=== PATIENT | male | born 1955 | race Caucasian/White ===

== ENCOUNTER 2020-11-11 19:16 | Emergency (ER) | payer MEDICARE, OTHER ==
[~2020-11-11] VITALS: Ht 180.3 cm; Wt 136.1 kg
[2020-11-11 19:23] VITALS: BP 170/95
--- NOTE | 2020-11-11 19:28 | ED GI ---
General Chief Complaint: Foreign Body Stated Complaint: FOOD STUCK IN THROAT Source of Information: Patient Exam Limitations: No Limitations History of Present Illness Date Seen by Provider: Nov 11, 2020 Time Seen by Provider: 19:24 Initial Comments To ER with reports that he has an apple stuck in his throat. He was a quarter slice of apple. He states that food gets stuck in his throat quite frequently. He is never had endoscopy before. He is able to swallow liquids. He can still feel it stuck in his throat. He was scared to force it on down for fear that it would enter his airway. Timing/Duration: 1-2 Days Severity/Quality: Moderate Location: Other Radiation: No Radiation Activities at Onset: None Associated Symptoms: Denies Symptoms Allergies and Home Medications Patient Home Medication List Home Medication List Reviewed: Yes Review of Systems Review of Systems Constitutional: see HPI EENTM: No Symptoms Reported Respiratory: No Symptoms Reported Cardiovascular: No Symptoms Reported Gastrointestinal: See HPI Genitourinary: No Symptoms Reported Musculoskeletal: no symptoms reported Skin: no symptoms reported Psychiatric/Neurological: No Symptoms Reported Endocrine: No Symptoms Reported Hematologic/Lymphatic: No Symptoms Reported Past Hrosonp-Kccjkq-Bgeqiq Hx Patient Social History Recent Foreign Travel: No Contact w/Someone Who Travel: No Physical Exam Vital Signs Capillary Refill : Height/Weight/BMI Height: '" Weight: lbs. oz. kg; BMI Method: General Appearance: WD/WN, no apparent distress, other (Advised that it was safe to try to force this down and it would not go into his airway he took a big gulp of water and states that he could feel it go down into his stomach. He has no residual symptom of foreign body stuck in his throat. Will observe him for a little bit. He states this happens frequently so either way he will need to follow-up with surgery.) HEENT: PERRL/EOMI Neck: non-tender, full range of motion Respiratory: no respiratory distress, no accessory muscle use Gastrointestinal: normal bowel sounds, non tender, soft Neurologic/Psychiatric: alert, normal mood/affect, oriented x 3 Skin: normal color, warm/dry Departure Impression Primary Impression: Esophageal dysmotility Disposition: 01 HOME, SELF-CARE Condition: Stable Departure-Patient Inst. Decision time for Depature: 19:27 Referrals: LINDA LAGUNAS BRETT D DO KIDO, TAKAAKI MD Patient Instructions: Esophageal Dilation Add. Discharge Instructions: 1. Return to ER for any concerns 2. Follow-up with one of the surgeons. Call tomorrow to make an appointment to be seen to have endoscopy scheduled to take a look down your throat. All discharge instructions reviewed with patient and/or family. Voiced unders tanding. OLINDA FAIR PRODUCE ASSISTANT Nov 11, 2020 19:28
== END 2020-11-11 19:49 | disposition home or self-care (01) ==
LOC: ER 19:19
DX: K22.8 Other specified diseases of esophagus (principal)
CPT/HCPCS: 99282

== ENCOUNTER 2021-07-21 07:22 | Outpatient (CLI) | payer MEDICARE ==
[~2021-07-21] VITALS: Ht 180.3 cm; Wt 131.8 kg
[2021-07-23] MEDS ORDERED: HYDR25TA4 PO (10:56)
[2021-07-23] MEDS ORDERED: LISI20TA26 PO (10:56)
[2021-07-23] MEDS ORDERED: INSU100V31 SQ (10:56)
[2021-07-23] MEDS ORDERED: GLIP10TA13 PO (10:56)
[2021-07-23] MEDS ORDERED: VERA80TA4 PO (10:56)
[2021-07-23] MEDS ORDERED: ALPR1TAB7 PO (10:56)
[2021-07-23] MEDS ORDERED: METF-399 PO (10:56)
[2021-07-23] MEDS ORDERED: INSU100I29 SQ (10:56)
[2021-07-23] MEDS ORDERED: [UNRECOGNIZED DRUG - CODE] PO (10:56)
== END 2021-07-23 10:59 ==
LOC: PREOP 07:22
PROVIDERS: ATTEND Specialist
DX: Z01.818 Encounter for other preprocedural examination (principal)

== ENCOUNTER 2021-07-25 07:40 | Day surgery (SDC) | payer MEDICARE ==
[~2021-07-25] VITALS: Ht 180 cm; Wt 131.8 kg
[~2021-07-25 07:40] MED LIST: ALPR1TAB7 PO; GLIP10TA13 PO; HYDR25TA4 PO; INSU100I29 SQ; INSU100V31 SQ; LISI20TA26 PO; METF-399 PO; VERA80TA4 PO; [UNRECOGNIZED DRUG - CODE] PO
[2021-07-25] MEDS ORDERED: LIDOCAINE PF 1% 2 ML VIAL IR PRN (08:00)
[2021-07-25] MEDS ORDERED: MOXIFLOXACIN OPHTH SOLN 5 MG/ML 0.3 ML SYRINGE OP ONE (08:00)
[2021-07-25] MEDS ORDERED: TIMOLOL MALEATE 0.5% 5 ML (TIMOPTIC) BTL OU PRN (08:00)
[2021-07-25] MEDS ORDERED: POVIDONE (BETADINE) OPHTH SOLN 5% 30 ML OP ONE (08:00)
[2021-07-25] MEDS: TETRACAINE 0.5% OPHTH SOLN 4 ML BTL (SINGLE DOSE ONLY) OU PRN ×4 (08:03→08:34)
[2021-07-25] MEDS: TROPICAMIDE 1% OPH SOLN (MYDRIACYL) 15 ML BTL OP SCH ×3 (08:19→08:34)
[2021-07-25] MEDS: PHENYLEPHRINE 10% OPHTH (NEO-SYN) 5 ML BTL OU SCH ×3 (08:19→08:34)
[2021-07-25 08:20] VITALS: BP 139/96
[2021-07-25] MEDS ORDERED: inSUlin ASPART (NovoLOG) 1 UNIT/0.01 ML (CHARGE PER UNIT) IV ONE (08:30)
[2021-07-25] MEDS ORDERED: MIDAZOLAM 2 MG/2 ML (VERSED) VIAL ONE (08:30)
[2021-07-25] MEDS ORDERED: inSUlin ASPART (NovoLOG) 1 UNIT/0.01 ML (CHARGE PER UNIT) ONE (08:31)
--- NOTE | 2021-07-25 08:47 | Ophthalmologist Pre-Op Note ---
Pre-Operative Progress Note H&P Reviewed The H&P was reviewed, patient examined and no changes noted. Date H&P Reviewed: Jul 25, 2021 Time H&P Reviewed: 08:47 Pre-Op Dx Cataract, Left Eye ARACELI PENG MD Jul 25, 2021 08:47
--- NOTE | 2021-07-25 09:07 | Ophthalmology Operative Report ---
Cataract removal/placement IOL PREOPERATIVE DIAGNOSIS: Cataract Left Eye POSTOPERATIVE DIAGNOSIS: Cataract Left Eye PROCEDURE: Cataract removal and placement of posterior chamber implant, left eye SURGEON: Pravin Peng ANESTHESIA: Topical with sedation COMPLICATIONS: None ESTIMATED BLOOD LOSS: Minimal DESCRIPTION OF PROCEDURE: After proper informed consent was obtained, the patient, a 65 male, was taken to the Operating Room and the left eye was anesthetized with tetracaine. The left eye was then prepped and draped in the usual manner. A wire lid speculum was placed. A paracentesis was made at the left hand position. Preservative free lidocaine was injected into the anterior chamber followed by viscoelastic. A clear corneal incision was made in the temporal position. A capsulorrhexis was preformed and the central nuclear and cortical material were removed. The posterior capsule was polished and an Don 21.5 AU00T0 was placed into the capsular bag. The residual viscoelastic was aspirated and balanced saline solution was injected into the anterior chamber. Moxifloxacin was injected into the anterior chamber. The wound was checked and found to be water tight. The patient tolerated the procedure well without complications. PRAVIN PENG MD Jul 25, 2021 09:07
[2021-07-25] MEDS ORDERED: acetaZOLAMIDE ER 500 MG CAP (DIAMOX SEQUELS) PO ONE (09:30)
[2021-07-25 09:45] VITALS: BP 117/72
--- NOTE | 2021-07-25 13:54 | Anesthesia-General Post-Op ---
MAC Patient Condition Mental Status/LOC: Same as Preop Cardiovascular: Satisfactory Nausea/Vomiting: Absent Respiratory: Satisfactory Pain: Controlled Complications: Absent Post Op Complications Complications None Follow Up Care/Instructions Patient Instructions None needed. Anesthesiology Discharge Order Discharge Order Patient is doing well, no complaints, stable vital signs, no apparent adverse anesthesia problems. No complications reported per nursing. DAVIAN MCCLAIN CRNA Jul 25, 2021 13:54
== END 2021-07-25 09:45 | disposition home or self-care (01) ==
LOC: SDC 07:40
PROVIDERS: ATTEND Specialist
DX: E11.36 Type 2 diabetes mellitus with diabetic cataract (principal); H25.12 Age-related nuclear cataract, left eye; I10 Essential (primary) hypertension; R00.0 Tachycardia, unspecified; F32.9 Major depressive disorder, single episode, unspecified; F41.9 Anxiety disorder, unspecified; Z79.4 Long term (current) use of insulin; Z79.899 Other long term (current) drug therapy; Z79.1 Long term (current) use of non-steroidal anti-inflammatories (NSAID)
CPT/HCPCS: 66984; 82947; 93005; V2632

== ENCOUNTER 2021-08-08 10:15 | Day surgery (SDC) | payer MEDICARE ==
[~2021-08-08] VITALS: Ht 180 cm; Wt 131.8 kg
[2021-08-08] MEDS ORDERED: POVIDONE (BETADINE) OPHTH SOLN 5% 30 ML OP ONE (10:30)
[2021-08-08] MEDS ORDERED: MOXIFLOXACIN OPHTH SOLN 5 MG/ML 0.3 ML SYRINGE OP ONE (10:30)
[2021-08-08] MEDS ORDERED: TIMOLOL MALEATE 0.5% 5 ML (TIMOPTIC) BTL OU PRN (10:30)
[2021-08-08] MEDS ORDERED: LIDOCAINE PF 1% 2 ML VIAL IR PRN (10:30)
[2021-08-08 10:31] VITALS: BP 150/89
[2021-08-08] MEDS: TETRACAINE 0.5% OPHTH SOLN 4 ML BTL (SINGLE DOSE ONLY) OU PRN ×4 (10:33→10:52)
[2021-08-08] MEDS: PHENYLEPHRINE 10% OPHTH (NEO-SYN) 5 ML BTL OU SCH ×3 (10:40→10:52)
[2021-08-08] MEDS: TROPICAMIDE 1% OPH SOLN (MYDRIACYL) 15 ML BTL OP SCH ×3 (10:41→10:52)
[2021-08-08] MEDS ORDERED: MIDAZOLAM 2 MG/2 ML (VERSED) VIAL ONE (11:13)
--- NOTE | 2021-08-08 11:19 | Ophthalmologist Pre-Op Note ---
Pre-Operative Progress Note H&P Reviewed The H&P was reviewed, patient examined and no changes noted. Date H&P Reviewed: Aug 08, 2021 Time H&P Reviewed: 11:18 Pre-Op Dx Cataract, Right Eye ARACELI PENG MD Aug 08, 2021 11:19
--- NOTE | 2021-08-08 11:44 | Ophthalmology Operative Report ---
Cataract removal/placement IOL PREOPERATIVE DIAGNOSIS: Cataract Right Eye POSTOPERATIVE DIAGNOSIS: Cataract Right Eye PROCEDURE: Cataract removal and placement of posterior chamber implant, right eye SURGEON: Pravin Peng ANESTHESIA: Topical with sedation COMPLICATIONS: None ESTIMATED BLOOD LOSS: Minimal DESCRIPTION OF PROCEDURE: After proper informed consent was obtained, the patient, a 66 male, was taken to the Operating Room and the right eye was anesthetized with tetracaine. The right eye was then prepped and draped in the usual manner. A wire lid speculum was placed. A paracentesis was made at the left hand position. Preservative free lidocaine was injected into the anterior chamber followed by viscoelastic. A clear corneal incision was made in the temporal position. A capsulorrhexis was preformed and the central nuclear and cortical material were removed. The posterior capsule was polished and Don 21.5 AU00T0 IOL was placed into the capsular bag. The residual viscoelastic was aspirated and balanced saline solution was injected into the anterior chamber. Moxifloxacin was injected into the anterior chamber. The wound was checked and found to be water tight. The patient tolerated the procedure well without complications. PRAVIN PENG MD Aug 08, 2021 11:44
[2021-08-08 11:57] VITALS: BP 153/85
[2021-08-08] MEDS ORDERED: acetaZOLAMIDE ER 500 MG CAP (DIAMOX SEQUELS) PO ONE (12:00)
--- NOTE | 2021-08-08 14:09 | Anesthesia-General Post-Op ---
MAC Patient Condition Mental Status/LOC: Same as Preop Cardiovascular: Satisfactory Nausea/Vomiting: Absent Respiratory: Satisfactory Pain: Controlled Complications: Absent Post Op Complications Complications None Follow Up Care/Instructions Patient Instructions None needed. Anesthesiology Discharge Order Discharge Order Patient was seen after the procedure and he was doing well, no complaints, stable vital signs, no apparent adverse anesthesia problems. NOTE: Pharmacy, please disregard the second waste in the Pyxis (the 0.5 mg waste was done so on the incorrect account). Pt was given 1 mg versed and 1 mg was wasted as shown in the Pyxis on the first waste. IAN WOOD DO Aug 08, 2021 14:09
== END 2021-08-08 11:57 | disposition home or self-care (01) ==
LOC: SDC 10:15
PROVIDERS: ATTEND Specialist
DX: E11.36 Type 2 diabetes mellitus with diabetic cataract (principal); H25.11 Age-related nuclear cataract, right eye; I10 Essential (primary) hypertension; G47.33 Obstructive sleep apnea (adult) (pediatric); E66.9 Obesity, unspecified; F41.9 Anxiety disorder, unspecified; F32.9 Major depressive disorder, single episode, unspecified; Z79.84 Long term (current) use of oral hypoglycemic drugs; Z79.899 Other long term (current) drug therapy; Z68.41 Body mass index [BMI] 40.0-44.9, adult; Z99.89 Dependence on other enabling machines and devices; Z83.3 Family history of diabetes mellitus
CPT/HCPCS: 66984; 82947; V2632

== ENCOUNTER 2021-11-06 15:31 | Emergency (ER) | payer MEDICARE ==
[~2021-11-06] VITALS: Ht 180 cm; Wt 127.0 kg
[2021-11-06 16:20] LABS: BASOPHILS # (AUTO) 0.1 10^3/uL (0.0-0.1); BASOPHILS % (AUTO) 1 % (0-10); EOSINOPHILS # (AUTO) 0.3 10^3/uL (0.0-0.3); EOSINOPHILS % (AUTO) 3 % (0-10); HEMATOCRIT 30 % (40-54); HEMOGLOBIN 9.3 g/dL (13.3-17.7); LYMPHOCYTES # (AUTO) 1.2 X 10^3 (1.0-4.0); LYMPHOCYTES % (AUTO) 12 % (12-44); MEAN CORPUSCULAR HEMOGLOBIN 26 pg (25-34); MEAN CORPUSCULAR HGB CONC 31 g/dL (32-36); MEAN CORPUSCULAR VOLUME 84 fL (80-99); MEAN PLATELET VOLUME 10.7 fL (9.0-12.2); MONOCYTES # (AUTO) 1.1 X 10^3 (0.0-1.0); MONOCYTES % (AUTO) 10 % (0-12); NEUTROPHILS # (AUTO) 7.6 X 10^3 (1.8-7.8); NEUTROPHILS % (AUTO) 74 % (42-75); PLATELET COUNT 398 10^3/uL (130-400); WHITE BLOOD COUNT 10.2 10^3/uL (4.3-11.0)
--- NOTE | 2021-11-06 16:27 | Diagnostic Imaging Report ---
EXAMINATION: Chest 1 view HISTORY: SOA COMPARISON: None available. FINDINGS: There are low lung volumes with mild interstitial opacities in the lung bases. Cardiac silhouette is mildly enlarged with prominence of pulmonary vasculature. Degenerative changes of the thoracic spine. Osseous structures are otherwise intact. IMPRESSION: 1. Low lung volumes with mild interstitial opacities in the lung bases which could be seen with atelectasis, pulmonary edema, or atypical infection. Dictated by: Dictated on workstation # [id number]
[2021-11-06 16:30] LABS: ALBUMIN 3.7 GM/DL (3.2-4.5); POTASSIUM 4.4 MMOL/L (3.6-5.0)
[2021-11-06 16:31] LABS: CALCIUM 8.9 MG/DL (8.5-10.1)
[2021-11-06 16:33] LABS: TOTAL PROTEIN 7.2 GM/DL (6.4-8.2)
[2021-11-06 16:34] LABS: BILIRUBIN,TOTAL 0.2 MG/DL (0.1-1.0)
[2021-11-06 16:36] LABS: CREATININE SERUM 1.44 MG/DL (0.60-1.30)
[2021-11-06 16:39] LABS: MAGNESIUM 1.9 MG/DL (1.6-2.4)
[2021-11-06] MEDS ORDERED: inSUlin (REGULAR) HUMAN 1 UNIT/0.01 ML (CHARGE PER UNIT) IV STA (16:55)
[2021-11-06 16:59] LABS: TSH (THYROID ANALYZER) 1.61 UIU/ML (0.35-4.94)
[2021-11-06] MEDS ORDERED: NS IV 1000 ML 1,000 ML IV SCH ×2 (17:00→18:00)
--- NOTE | 2021-11-06 17:35 | ED General ---
General Chief Complaint: Respiratory Problems Stated Complaint: SOA Nursing Triage Note: PT CO OF SOA, FOR SEVERAL MONTHS WORSE PAST COUPLE DAYS, STATES WORSE D/T BEING BITTEN BY BED BUG FOR SEVERAL YEARS. DENIES C/P, FEVER, COUGH. PT STATES WEARS C-PAP FOR SLEEP APNEA Source of Information: Patient Exam Limitations: No Limitations History of Present Illness Date Seen by Provider: Nov 06, 2021 Time Seen by Provider: 15:42 Initial Comments This 66-year-old gentleman presents to the emergency room with complaints of shortness of breath and fatigue worsening over the past couple of weeks. He has been experiencing some degree of symptoms for the past few months. He does use a CPAP machine for sleep apnea and that does help. He has the most trouble lying down flat and has difficulty sleeping as a result. He is an insulin- dependent type 2 diabetic. He does not check his blood sugars and he has not been using his insulin prescribed. He has been using Levemir 20 units and Humalog 35 units at bedtime only. He has not been using Humalog at mealtimes. His primary care provider is Kadeem Lowry. He denies any cough, fever, or chest pain. He also describes a vague "sick feeling" in the upper abdomen after eating. This resolves if he takes a nap. Patient thinks he may perhaps be experiencing these problems because of severe bedbug infestation in his home. Allergies and Home Medications Allergies Coded Allergies: No Known Drug Allergies (Unverified , 07/23/21) Patient Home Medication List Home Medication List Reviewed: Yes Alprazolam (Alprazolam) 1 Mg Tablet, 1 MG PO BID, (Reported) Entered as Reported by: WALKER MEADOWS on 07/23/21 1056 Amoxapine (Amoxapine) 50 Mg Tab, 50 MG PO UD, (Reported) Entered as Reported by: WALKER MEADOWS on 07/23/21 1056 Glipizide (Glipizide) 10 Mg Tablet, 10 MG PO TID, (Reported) Entered as Reported by: WALKER MEADOWS on 07/23/21 1056 Hydrochlorothiazide (Hydrochlorothiazide) 25 Mg Tablet, 25 MG PO DAILY, (Reported) Entered as Reported by: WALKER MEADOWS on 07/23/21 1056 Insulin Detemir (Levemir Flextouch) 100 Unit/1 Ml Insuln.pen, 20 UNIT SQ BID, (Reported) Entered as Reported by: WALKER MEADOWS on 07/23/21 1056 Insulin Regular, Human (Novolin R) 100 Unit/1 Ml Vial, 35 UNIT SQ TIDAC, (Reported) Entered as Reported by: WALKER MEADOWS on 07/23/21 1056 Lisinopril (Lisinopril) 20 Mg Tablet, 20 MG PO DAILY, (Reported) Entered as Reported by: WALKER MEADOWS on 07/23/21 1056 Metformin HCl (Metformin HCl) 1,000 Mg Tablet, 1,000 MG PO BID, (Reported) Entered as Reported by: WALKER MEADOWS on 07/23/21 1056 Verapamil HCl (Verapamil HCl) 80 Mg Tablet, 80 MG PO UD, (Reported) Entered as Reported by: WALKER MEADOWS on 07/23/21 1056 Review of Systems Review of Systems Constitutional: see HPI EENTM: no symptoms reported Respiratory: see HPI Cardiovascular: see HPI Gastrointestinal: see HPI Genitourinary: no symptoms reported Musculoskeletal: no symptoms reported Skin: no symptoms reported Psychiatric/Neurological: No Symptoms Reported Hematologic/Lymphatic: No Symptoms Reported Immunological/Allergic: no symptoms reported Past Zfmqwhk-Vwhjqc-Nxrpmg Hx Patient Social History Tobacco Use?: No Substance use?: No Alcohol Use?: No Pt feels they are or have been: No Seasonal Allergies Seasonal Allergies: No Past Medical History Surgeries: No Respiratory: Yes Sleep Apnea Cardiac: Yes High Cholesterol, Hypertension Neurological: Yes ("TOXIC PAINT POISONING") Genitourinary: No Gastrointestinal: No Musculoskeletal: Yes (CARPEL TUNNEL) Endocrine: Yes Diabetes, Non-Insulin dep HEENT: No Cancer: No Psychosocial: No Integumentary: No Physical Exam Vital Signs Vital Signs - First Documented 11/06/21 15:40 Temp 36.6 Pulse 110 Resp 20 B/P (MAP) 179/98 (125) Pulse Ox 95 Capillary Refill : Less Than 3 Seconds Height, Weight, BMI Height: '" Weight: lbs. oz. kg; 39.00 BMI Method: General Appearance: No Apparent Distress, WD/WN, Obese HEENT: PERRL/EOMI, Normal ENT Inspection, Pharynx Normal Neck: Normal Inspection, Non Tender Respiratory: Lungs Clear, Normal Breath Sounds, No Accessory Muscle Use, No Respiratory Distress Cardiovascular: Regular Rate, Rhythm, No Edema, No Murmur Gastrointestinal: Normal Bowel Sounds, No Organomegaly, Non Tender; No Distended Extremity: Normal Inspection, No Pedal Edema Neurologic/Psychiatric: Alert, Oriented x3, No Motor/Sensory Deficits, Normal Mood/Affect, mirror inspector II-XII Norm as Tested Skin: Normal Color, Warm/Dry, Rash (bite stoll on upper extremities) Progress/Results/Core Measures Suspected Sepsis SIRS Temperature: Pulse: 110 Respiratory Rate: 20 Laboratory Tests 11/06/21 16:05: White Blood Count 10.2 Blood Pressure 179 /98 Mean: 125 Laboratory Tests 11/06/21 16:05: Creatinine 1.44H, Platelet Count 398, Total Bilirubin 0.2 Results/Orders Lab Results Laboratory Tests Test 11/06/21 16:00 11/06/21 16:05 11/06/21 17:41 11/06/21 17:44 Range/Units White Blood Count 10.2 4.3-11.0 10^3/uL Red Blood Count 3.64 L 4.30-5.52 10^6/uL Hemoglobin 9.3 L 13.3-17.7 g/dL Hematocrit 30 L 40-54 % Mean Corpuscular Volume 84 80-99 fL Mean Corpuscular Hemoglobin 26 25-34 pg Mean Corpuscular Hemoglobin Concent 31 L 32-36 g/dL Red Cell Distribution Width 14.6 H 10.0-14.5 % Platelet Count 398 130-400 10^3/uL Mean Platelet Volume 10.7 9.0-12.2 fL Immature Granulocyte % (Auto) 1 % Neutrophils (%) (Auto) 74 42-75 % Lymphocytes (%) (Auto) 12 12-44 % Monocytes (%) (Auto) 10 0-12 % Eosinophils (%) (Auto) 3 0-10 % Basophils (%) (Auto) 1 0-10 % Neutrophils # (Auto) 7.6 1.8-7.8 X 10^3 Lymphocytes # (Auto) 1.2 1.0-4.0 X 10^3 Monocytes # (Auto) 1.1 H 0.0-1.0 X 10^3 Eosinophils # (Auto) 0.3 0.0-0.3 10^3/uL Basophils # (Auto) 0.1 0.0-0.1 10^3/uL Immature Granulocyte # (Auto) 0.1 0.0-0.1 10^3/uL Sodium Level 135 135-145 MMOL/L Potassium Level 4.4 3.6-5.0 MMOL/L Chloride Level 99 98-107 MMOL/L Carbon Dioxide Level 21 21-32 MMOL/L Anion Gap 15 H 5-14 MMOL/L Blood Urea Nitrogen 15 7-18 MG/DL Creatinine 1.44 H 0.60-1.30 MG/DL Estimat Glomerular Filtration Rate 49 BUN/Creatinine Ratio 10 Glucose Level 581 *H 70-105 MG/DL Calcium Level 8.9 8.5-10.1 MG/DL Corrected Calcium 9.1 8.5-10.1 MG/DL Magnesium Level 1.9 1.6-2.4 MG/DL Total Bilirubin 0.2 0.1-1.0 MG/DL Aspartate Amino Transf (AST/SGOT) 20 5-34 U/L Alanine Aminotransferase (ALT/SGPT) 28 0-55 U/L Alkaline Phosphatase 90 40-136 U/L C-Reactive Protein High Sensitivity 0.86 H 0.00-0.50 MG/DL B-Type Natriuretic Peptide 45.2 <100.0 PG/ML Total Protein 7.2 6.4-8.2 GM/DL Albumin 3.7 3.2-4.5 GM/DL TSH [place] Testing 1.61 0.35-4.94 UIU/ML Glucometer 432 *H 70-110 MG/DL Urine Color YELLOW Urine Clarity CLEAR Urine pH 6.0 5-9 Urine Specific [place] 1.010 L 1.016-1.022 Urine Protein NEGATIVE NEGATIVE Urine Glucose (UA) 3+ H NEGATIVE Urine Ketones NEGATIVE NEGATIVE Urine Nitrite NEGATIVE NEGATIVE Urine Bilirubin NEGATIVE NEGATIVE Urine Urobilinogen 0.2 < = 1.0 MG/DL Urine Leukocyte Esterase NEGATIVE NEGATIVE Urine RBC (Auto) NEGATIVE NEGATIVE Urine RBC NONE /HPF Urine WBC NONE /HPF Urine Squamous Epithelial Cells NONE /HPF Urine Crystals NONE /LPF Urine Bacteria NEGATIVE /HPF Urine Casts NONE /LPF Urine Mucus NEGATIVE /LPF Urine Culture Indicated NO My Orders Orders - JANE CARNES MD [facility] (11/06/21 15:55) Cbc With Automated Diff (11/06/21 15:55) Comprehensive Metabolic Panel (11/06/21 15:55) Hs C Reactive Protein (11/06/21 15:55) Magnesium (11/06/21 15:55) Thyroid Analyzer (11/06/21 15:55) Ua Culture If Indicated (11/06/21 15:55) Chest 1 View, Ap/Pa Only (11/06/21 15:55) Ed Iv/Invasive Line Start (11/06/21 15:55) Covid 19 Inhouse Test (11/06/21 15:55) Ns Iv 1000 Ml (Sodium Chloride 0.9%) (11/06/21 17:00) Insulin (Regular) Human (Novolin R (Per (11/06/21 16:55) Accucheck Stat ONCE (11/06/21 16:56) Ns Iv 1000 Ml (Sodium Chloride 0.9%) (11/06/21 18:00) Insulin (Regular) Human (Novolin R (Per (11/06/21 18:00) Insulin (Regular) Human (Novolin R (Per (11/06/21 18:00) Vital Signs/I&O 11/06/21 15:40 Temp 36.6 Pulse 110 Resp 20 B/P (MAP) 179/98 (125) Pulse Ox 95 Capillary Refill : Less Than 3 Seconds Blood Pressure Mean: 125 Progress Note #1: Time: 17:36 Progress Note Patient serum blood sugar was 581. He is receiving a liter of IV fluid and 5 units of insulin by IV route. We will check his blood sugar again after that. No other cause for his symptoms are identified. There were questionable infiltrates in the lower lung millard on chest x-ray. However, this does not correlate with any other signs of heart failure or pneumonia with his vital signs or work-up. This is most likely atelectasis or artifact due to body habitus. Progress Note #2: Time: 18:00 Progress Note Patient's blood sugar dropped by approximately 150 after about 500 mL of normal saline and 5 units of IV insulin. We will repeat a liter of normal saline and another 5 units of insulin. As long as he is feeling relatively well and trending down on his blood sugars appropriately, he can be discharged. Diagnostic Imaging Diagonstic Imaging: Xray Plain Films/CT/US/NM/MRI: chest Comments NAME: KEY KAM [facility] REC#: [id number] PT STATUS: REG ER : 1955 PHYSICIAN: JANE CARNES MD ADMIT DATE: 11/06/21/ER Signed Date of Exam:11/06/21 CHEST 1 VIEW, AP/PA ONLY EXAMINATION: Chest 1 view HISTORY: SOA COMPARISON: None available. FINDINGS: There are low lung volumes with mild interstitial opacities in the lung bases. Cardiac silhouette is mildly enlarged with prominence of pulmonary vasculature. Degenerative changes of the thoracic spine. Osseous structures are otherwise intact. IMPRESSION: 1. Low lung volumes with mild interstitial opacities in the lung bases which could be seen with atelectasis, pulmonary edema, or atypical infection. Dictated by: Dictated on workstation # [id number] Dict: 11/06/211624 Trans: 11/06/211655 CV [id number] Interpreted by: JAVY REIS DO Electronically signed by: JAVY REIS DO 11/06/211655 Departure Impression Primary Impression: Dyspnea Qualified Codes: R06.00 - Dyspnea, unspecified Additional Impressions: Hyperglycemia Bedbug bite Qualified Codes: W57.XXXA - Bitten or stung by nonvenomous insect and other nonvenomous arthropods, initial encounter Obstructive sleep apnea Disposition: 01 HOME, SELF-CARE Condition: Improved Departure-Patient Inst. Decision time for Depature: 17:39 Referrals: [facility] (PCP/Family) Primary Care Physician Patient Instructions: Using Insulin Add. Discharge Instructions: Drink plenty of water. Use your insulin as prescribed and do not skip any doses. Check your blood sugar fasting in the morning and 2 hours after each meal. Record these blood sugars and take them promptly to your doctor in a follow-up appointment. Please schedule an appointment for next week. Eat a diet low in sugars and carbohydrates. At that appointment also discussed your CPAP machine perhaps your shortness of breath is secondary to the functionality of that machine. Call with questions or concerns. Return to the ER if you have worsening symptoms. All discharge instructions reviewed with patient and/or family. Voiced understanding. JANE CARNES MD Nov 06, 2021 17:35
[2021-11-06 17:50] LABS: BILIRUBIN,URINE NEGATIVE (NEGATIVE); CLARITY,URINE CLEAR; COLOR,URINE YELLOW; GLUCOSE, URINE (UA) 3+ (NEGATIVE); KETONES,URINE NEGATIVE (NEGATIVE); LEUKOCYTE ESTERASE ,URINE NEGATIVE (NEGATIVE); NITRITE,URINE NEGATIVE (NEGATIVE); PROTEIN,URINE NEGATIVE (NEGATIVE)
[2021-11-06 17:57] LABS: BACTERIA,URINE NEGATIVE /HPF
[2021-11-06] MEDS ORDERED: inSUlin (REGULAR) HUMAN 1 UNIT/0.01 ML (CHARGE PER UNIT) IV ONE ×2 (18:00)
[2021-11-06 19:12] VITALS: BP 157/92
== END 2021-11-06 19:12 | disposition home or self-care (01) ==
LOC: EDUNIT# 15:31 → ER 15:34
DX: R06.00 Dyspnea, unspecified (principal); E11.9 Type 2 diabetes mellitus without complications; S60.562A Insect bite (nonvenomous) of left hand, initial encounter; S60.561A Insect bite (nonvenomous) of right hand, initial encounter; G47.33 Obstructive sleep apnea (adult) (pediatric); E66.9 Obesity, unspecified; I10 Essential (primary) hypertension; Z20.822 Contact with and (suspected) exposure to COVID-19; Z68.39 Body mass index [BMI] 39.0-39.9, adult; Z79.84 Long term (current) use of oral hypoglycemic drugs; W57.XXXA Bitten or stung by nonvenomous insect and other nonvenomous arthropods, initial encounter
CPT/HCPCS: 36415; 71045; 80053; 81000; 82947; 83735; 83880; 84443; 85025; 86141; 87636

== ENCOUNTER 2021-12-10 15:20 | Emergency (ER) | payer MEDICARE ==
[~2021-12-10] VITALS: Ht 180.3 cm; Wt 131.0 kg
[2021-12-10 15:51] LABS: BASOPHILS % (AUTO) 1 % (0-10); EOSINOPHILS # (AUTO) 0.2 10^3/uL (0.0-0.3); EOSINOPHILS % (AUTO) 3 % (0-10); HEMATOCRIT 24 % (40-54); LYMPHOCYTES # (AUTO) 1.3 10^3/uL (1.0-4.0); LYMPHOCYTES % (AUTO) 21 % (12-44); MEAN CORPUSCULAR HEMOGLOBIN 23 pg (25-34); MEAN CORPUSCULAR HGB CONC 29 g/dL (32-36); MEAN CORPUSCULAR VOLUME 80 fL (80-99); MEAN PLATELET VOLUME 10.6 fL (9.0-12.2); MONOCYTES # (AUTO) 1.3 10^3/uL (0.0-1.0); MONOCYTES % (AUTO) 21 % (0-12); NEUTROPHILS # (AUTO) 3.3 10^3/uL (1.8-7.8); NEUTROPHILS % (AUTO) 54 % (42-75); PLATELET COUNT 457 10^3/uL (130-400)
--- NOTE | 2021-12-10 15:51 | ED Cough/URI ---
General Stated Complaint: COUGH, SOB Source: patient Exam Limitations: no limitations History of Present Illness Date Seen by Provider: Dec 10, 2021 Time Seen by Provider: 15:47 Initial Comments To ER with a 3-day history of a nonproductive cough. No fever no chills. He has had 3 COVID vaccinations. He states that he has a severe bedbug infestation and believes that may be contributing to his cough though he is not sure how. He states that when he lays down his arm will be nearly immediately covered in bedbugs. I would believe this as they are falling off of him and in the creases of his coat and all over his clothing and one of the worst cases of bedbug infestations on a person that I have seen in quite some time. Timing/Duration: constant Severity/Quality: dry cough Associated Symptoms: cough Allergies and Home Medications Allergies Coded Allergies: No Known Drug Allergies (Unverified , 07/23/21) Patient Home Medication List Home Medication List Reviewed: Yes Alprazolam (Alprazolam) 1 Mg Tablet, 1 MG PO BID, (Reported) Entered as Reported by: WALKER MEADOWS on 07/23/21 105 Amoxapine (Amoxapine) 50 Mg Tab, 50 MG PO UD, (Reported) Entered as Reported by: WALKER MEADOWS on 07/23/21 105 Glipizide (Glipizide) 10 Mg Tablet, 10 MG PO TID, (Reported) Entered as Reported by: WALKER MEADOWS on 07/23/21 105 Hydrochlorothiazide (Hydrochlorothiazide) 25 Mg Tablet, 25 MG PO DAILY, (Reported) Entered as Reported by: WALKER MEADOWS on 07/23/21 105 Insulin Detemir (Levemir Flextouch) 100 Unit/1 Ml Insuln.pen, 20 UNIT SQ BID, (Reported) Entered as Reported by: WALKER MEADOWS on 07/23/21 1056 Insulin Regular, Human (Novolin R) 100 Unit/1 Ml Vial, 35 UNIT SQ TIDAC, (Reported) Entered as Reported by: WALKER MEADOWS on 07/23/21 1056 Lisinopril (Lisinopril) 20 Mg Tablet, 20 MG PO DAILY, (Reported) Entered as Reported by: WALKER MEADOWS on 07/23/21 1056 Metformin HCl (Metformin HCl) 1,000 Mg Tablet, 1,000 MG PO BID, (Reported) Entered as Reported by: WALKER MEADOWS on 07/23/21 1056 Verapamil HCl (Verapamil HCl) 80 Mg Tablet, 80 MG PO UD, (Reported) Entered as Reported by: WALKER MEADOWS on 07/23/21 1056 Review of Systems Review of Systems Constitutional: see HPI EENTM: see HPI Respiratory: see HPI, cough Cardiovascular: no symptoms reported Genitourinary: no symptoms reported Musculoskeletal: no symptoms reported Skin: no symptoms reported Psychiatric/Neurological: No Symptoms Reported Hematologic/Lymphatic: No Symptoms Reported Immunological/Allergic: no symptoms reported Past Utszxcr-Xvdmup-Ovubmp Hx Seasonal Allergies Seasonal Allergies: No Past Medical History Surgeries: No Respiratory: Yes Sleep Apnea Cardiac: Yes High Cholesterol, Hypertension Neurological: Yes ("TOXIC PAINT POISONING") Genitourinary: No Gastrointestinal: No Musculoskeletal: Yes (CARPEL TUNNEL) Endocrine: Yes Diabetes, Non-Insulin dep HEENT: No Cancer: No Psychosocial: No Integumentary: No Physical Exam Vital Signs - First Documented Capillary Refill : Height: '" Weight: lbs. oz. kg; 39.00 BMI Method: General Appearance: WD/WN, other (Unkempt though in no distress. Bedbugs as mentioned are falling off of him onto the bed.) Eyes: Bilateral Eye Normal Inspection, Bilateral Eye PERRL, Bilateral Eye EOMI HEENT: PERRL/EOMI, normal ENT inspection Neck: non-tender, full range of motion Respiratory: normal breath sounds, no respiratory distress, no accessory muscle use Cardiovascular: regular rate, rhythm, no murmur Gastrointestinal: normal bowel sounds, non tender, soft Neurologic/Psychiatric: alert, normal mood/affect, oriented x 3 Skin: normal color, warm/dry Progress/Results/Core Measures Suspected Sepsis SIRS Temperature: Pulse: Respiratory Rate: Laboratory Tests 12/10/21 15:45: White Blood Count 6.0 Blood Pressure / Mean: Laboratory Tests 12/10/21 15:45: Creatinine 1.02, Platelet Count 457H, Total Bilirubin 0.2 Results/Orders Lab Results Laboratory Tests Test 12/10/21 15:30 12/10/21 15:38 12/10/21 15:45 Range/Units Influenza Type A (RT-PCR) Not Detected Not Detecte Influenza Type B (RT-PCR) Not Detected Not Detecte SARS-CoV-2 RNA (RT-PCR) Detected H Not Detecte White Blood Count 6.0 4.3-11.0 10^3/uL Red Blood Count 3.06 L 4.30-5.52 10^6/uL Hemoglobin 7.0 L 13.3-17.7 g/dL Hematocrit 24 L 40-54 % Mean Corpuscular Volume 80 80-99 fL Mean Corpuscular Hemoglobin 23 L 25-34 pg Mean Corpuscular Hemoglobin Concent 29 L 32-36 g/dL Red Cell Distribution Width 15.5 H 10.0-14.5 % Platelet Count 457 H 130-400 10^3/uL Mean Platelet Volume 10.6 9.0-12.2 fL Immature Granulocyte % (Auto) 1 % Neutrophils (%) (Auto) 54 42-75 % Lymphocytes (%) (Auto) 21 12-44 % Monocytes (%) (Auto) 21 H 0-12 % Eosinophils (%) (Auto) 3 0-10 % Basophils (%) (Auto) 1 0-10 % Neutrophils # (Auto) 3.3 1.8-7.8 10^3/uL Lymphocytes # (Auto) 1.3 1.0-4.0 10^3/uL Monocytes # (Auto) 1.3 H 0.0-1.0 10^3/uL Eosinophils # (Auto) 0.2 0.0-0.3 10^3/uL Basophils # (Auto) 0.0 0.0-0.1 10^3/uL Immature Granulocyte # (Auto) 0.0 0.0-0.1 10^3/uL Neutrophils % (Manual) 66 % Lymphocytes % (Manual) 14 % Monocytes % (Manual) 13 % Eosinophils % (Manual) 7 % Basophils % (Manual) 0 % Band Neutrophils 0 % Polychromasia SLIGHT Hypochromasia MODERATE Anisocytosis SLIGHT Target Cells MODERATE Sodium Level 141 135-145 MMOL/L Potassium Level 3.9 3.6-5.0 MMOL/L Chloride Level 106 98-107 MMOL/L Carbon Dioxide Level 21 21-32 MMOL/L Anion Gap 14 5-14 MMOL/L Blood Urea Nitrogen 14 7-18 MG/DL Creatinine 1.02 0.60-1.30 MG/DL Estimat Glomerular Filtration Rate 81 BUN/Creatinine Ratio 14 Glucose Level 154 H 70-105 MG/DL Calcium Level 9.0 8.5-10.1 MG/DL Corrected Calcium 9.2 8.5-10.1 MG/DL Total Bilirubin 0.2 0.1-1.0 MG/DL Aspartate Amino Transf (AST/SGOT) 26 5-34 U/L Alanine Aminotransferase (ALT/SGPT) 27 0-55 U/L Alkaline Phosphatase 68 40-136 U/L B-Type Natriuretic Peptide 32.5 <100.0 PG/ML Total Protein 7.3 6.4-8.2 GM/DL Albumin 3.7 3.2-4.5 GM/DL My Orders Orders - OLINDA FAIR APRN Cbc With Automated Diff (12/10/21 15:40) Comprehensive Metabolic Panel (12/10/21 15:40) Bnp [place] (12/10/21 15:40) Ed Iv/Invasive Line Start (12/10/21 15:40) Chest 1 View, Ap/Pa Only (12/10/21 15:40) Covid 19 Inhouse Test (12/10/21 15:40) Influenza A And B By Pcr (12/10/21 15:40) Manual Differential (12/10/21 15:45) Red Cells Leukocytes Reduced (12/10/21 16:07) Type And Screen (12/10/21 16:07) Anemia Analyzer Hem Tests (12/10/21 16:10) Anemia Analyzer Pathology (12/10/21 16:10) Reticulocyte Count (12/10/21 16:10) Procalcitonin (Pct) (12/10/21 16:36) Vital Signs/I&O 12/10/21 12/10/21 15:33 15:33 Temp 36.1 Pulse 91 Resp 16 B/P (MAP) 139/67 (91) Pulse Ox 98 O2 Delivery Room Air Room Air Capillary Refill : Departure Communication (Admissions) 1705-Discussed with Dr. Adame , he is hemodynamically stable, will give 1 unit of packed red cells in the outpatient setting and have him follow-up with surgery for upper and lower endoscopy. Anemia analyzer is pending. Impression Primary Impression: Symptomatic anemia Additional Impression: Bedbug Hyperinfestation Disposition: 01 HOME, SELF-CARE Condition: Stable Admissions Decision to Admit Reason: Admit from ER (General) Decision to Admit/Date: Dec 10, 2021 Time/Decision to Admit Time: 16:25 Departure-Patient Inst. Decision time for Depature: 17:05 Referrals: [facility] [place] Primary Care Physician LINDA LAGUNAS BRETT D DO KIDO, TAKAAKI MD Add. Discharge Instructions: 1. Call a surgeon of your choosing to make an appointment to be seen for follow-up. Call tomorrow to make that appointment. Also call primary care tomorrow to make an appointment to be seen. Return to ER for any worsening. OLINDA FAIR APRN Dec 10, 2021 15:51
[2021-12-10 16:07] LABS: ALBUMIN 3.7 GM/DL (3.2-4.5)
[2021-12-10 16:08] LABS: POTASSIUM 3.9 MMOL/L (3.6-5.0)
[2021-12-10 16:10] LABS: TOTAL PROTEIN 7.3 GM/DL (6.4-8.2)
[2021-12-10 16:12] LABS: BAND NEUTROPHILS 0 %; BASOPHILS % (MANUAL) 0 %; BILIRUBIN,TOTAL 0.2 MG/DL (0.1-1.0); EOSINOPHILS % (MANUAL) 7 %; LYMPHOCYTES % (MANUAL) 14 %; MONOCYTES % (MANUAL) 13 %; NEUTROPHILS % (MANUAL) 66 %
[2021-12-10 16:13] LABS: ANISOCYTOSIS SLIGHT; CREATININE SERUM 1.02 MG/DL (0.60-1.30); HYPOCHROMASIA MODERATE; POLYCHROMASIA SLIGHT; TARGET CELLS MODERATE
--- NOTE | 2021-12-10 17:12 | Diagnostic Imaging Report ---
INDICATION: Covid. COMPARISON: 11/06/2021. EXAMINATION: Single view of the chest. FINDINGS: Cardiac enlargement without pulmonary edema or acute infiltrate. There is no pneumothorax or effusion. Osseous structures are normal. IMPRESSION: No acute cardiopulmonary findings. Dictated by: Dictated on workstation # [id number]
[2021-12-10 18:39] LABS: ABSOLUTE RETIC # 57 10e9/uL (24-90); RETICULOCYTE % 1.82 % (0.50-2.40)
[2021-12-10 21:11] VITALS: BP 117/75
[2021-12-10 21:33] VITALS: BP 143/69
[2021-12-10 23:38] VITALS: BP 145/81
== END 2021-12-10 17:32 | disposition home or self-care (01) ==
LOC: EDUNIT# 15:20 → ER 15:22
DX: D64.9 Anemia, unspecified (principal); U07.1 COVID-19; B88.9 Infestation, unspecified; I10 Essential (primary) hypertension; E11.9 Type 2 diabetes mellitus without complications; G47.30 Sleep apnea, unspecified; Z79.84 Long term (current) use of oral hypoglycemic drugs; Z79.899 Other long term (current) drug therapy
CPT/HCPCS: 71045; 80053; 82728; 83880; 84145; 85007; 85027; 85045; 86850; 86900; 86901; 86920; 87636; 99284; P9016; 36415; 36430

== ENCOUNTER 2021-12-10 17:02 | Outpatient (CLI) | payer MEDICARE ==
[~2021-12-10] VITALS: Ht 180.3 cm; Wt 132.0 kg
[2021-12-10 18:52] VITALS: BP 136/70
[2021-12-10] MEDS ORDERED: NS IV 500 ML 500 ML IV SCH (19:45)
[2021-12-10] MEDS ORDERED: NS IV 500 ML 500 ML ONE (20:44)
== END 2021-12-11 00:30 | disposition home or self-care (01) ==
LOC: LAB 17:02
PROVIDERS: ATTEND Emergency Medicine
DX: D64.9 Anemia, unspecified (principal); U07.1 COVID-19
CPT/HCPCS: 36430

== ENCOUNTER 2021-12-23 09:14 | Emergency (ER) | payer MEDICARE ==
[~2021-12-23] VITALS: Ht 180 cm; Wt 127.0 kg
--- NOTE | 2021-12-23 10:41 | ED General ---
General Chief Complaint: Dizziness/Syncope Stated Complaint: SOB,DIZZINESS Nursing Triage Note: ARRIVED VIA AMB TO ROOM 05. STATES HE HAS BEEN DIZZY WITH SOA FOR A LONG TIME. HAS A HX OF ANEMIA. DENIES COUGH OR FEVER. Source of Information: Patient Exam Limitations: No Limitations (OLINDA FAIR APRN) History of Present Illness Date Seen by Provider: Dec 23, 2021 Time Seen by Provider: 10:40 Initial Comments To ER with reports of shortness of breath and dizziness for a long time. History of anemia. Hemoglobin last week was 7 for which she received a unit of packed red cells. He is feeling a bit worse today. Denies any melena or hematochezia or hematemesis. Timing/Duration: 1-2 Days Severity: Moderate Associated Systoms: Weakness (OLINDA FAIR APRN) Allergies and Home Medications Allergies Coded Allergies: No Known Drug Allergies (Unverified , 07/23/21) Patient Home Medication List Home Medication List Reviewed: Yes (OLINDA FAIR APRN) Alprazolam (Alprazolam) 1 Mg Tablet, 1 MG PO BID, (Reported) Entered as Reported by: WALKER MEADOWS on 07/23/21 1056 Amoxapine (Amoxapine) 50 Mg Tab, 50 MG PO UD, (Reported) Entered as Reported by: WALKER MEADOWS on 07/23/21 1056 Glipizide (Glipizide) 10 Mg Tablet, 10 MG PO TID, (Reported) Entered as Reported by: WALKER MEADOWS on 07/23/21 1056 Hydrochlorothiazide (Hydrochlorothiazide) 25 Mg Tablet, 25 MG PO DAILY, (Reported) Entered as Reported by: WALKER MEADOWS on 07/23/21 1056 Insulin Detemir (Levemir Flextouch) 100 Unit/1 Ml Insuln.pen, 20 UNIT SQ BID, (Reported) Entered as Reported by: WALKER MEADOWS on 07/23/21 1056 Insulin Regular, Human (Novolin R) 100 Unit/1 Ml Vial, 35 UNIT SQ TIDAC, (Reported) Entered as Reported by: WALKER MEADOWS on 07/23/21 1056 Lisinopril (Lisinopril) 20 Mg Tablet, 20 MG PO DAILY, (Reported) Entered as Reported by: WALKER MEADOWS on 07/23/21 1056 Metformin HCl (Metformin HCl) 1,000 Mg Tablet, 1,000 MG PO BID, (Reported) Entered as Reported by: WALKER MEADOWS on 07/23/21 1056 Verapamil HCl (Verapamil HCl) 80 Mg Tablet, 80 MG PO UD, (Reported) Entered as Reported by: WALKER MEADOWS on 07/23/21 1056 Review of Systems Review of Systems Constitutional: see HPI EENTM: see HPI Respiratory: no symptoms reported Cardiovascular: no symptoms reported Genitourinary: no symptoms reported Musculoskeletal: no symptoms reported Skin: no symptoms reported Psychiatric/Neurological: No Symptoms Reported Hematologic/Lymphatic: No Symptoms Reported Immunological/Allergic: no symptoms reported (OLINDA FAIR APRN) Past Kosiibw-Xojwgi-Dnocjc Hx Patient Social History Tobacco Use?: No Substance use?: No Alcohol Use?: No (OLINDA FAIR APRN) Immunizations Up To Date First/Initial COVID19 Vaccinat: MODERNA Second COVID19 Vaccination Ray: MODERNA Third COVID19 Vaccination Date: 10/12 COVID19 [employer] Lawyer: MODERNA (OLINDA FAIR APRN) Seasonal Allergies Seasonal Allergies: No (OLINDA FAIR APRN) Past Medical History Surgeries: No Respiratory: Yes Sleep Apnea Cardiac: Yes High Cholesterol, Hypertension Neurological: Yes ("TOXIC PAINT POISONING") Genitourinary: No Gastrointestinal: No Musculoskeletal: Yes (CARPEL TUNNEL) Endocrine: Yes Diabetes, Non-Insulin dep HEENT: No Cancer: No Psychosocial: No Integumentary: No (OLINDA FAIR APRN) Physical Exam Vital Signs Vital Signs - First Documented 12/23/21 09:15 Temp 36.3 Pulse 105 Resp 16 B/P (MAP) 165/81 (109) Pulse Ox 92 O2 Delivery Room Air (JANE CARNES MD) Vital Signs Capillary Refill : Less Than 3 Seconds (OLINDA FAIR APRN) Height, Weight, BMI Height: '" Weight: lbs. oz. kg; 39.00 BMI Method: General Appearance: No Apparent Distress, WD/WN, Obese, Other (GEN 86% on room air while sleeping but rises to 97% when awakened.) Neck: Full Range of Motion, Normal Inspection Respiratory: No Accessory Muscle Use, No Respiratory Distress Gastrointestinal: Non Tender, Soft Extremity: Normal Capillary Refill, Normal Inspection Neurologic/Psychiatric: Alert, Oriented x3 Skin: Normal Color, Warm/Dry (OLINDA FAIR APRN) Progress/Results/Core Measures Suspected Sepsis SIRS Temperature: Pulse: 105 Respiratory Rate: 16 Laboratory Tests 12/23/21 09:36: White Blood Count 11.0 Blood Pressure 165 /81 Mean: 109 Laboratory Tests 12/23/21 09:36: Creatinine 1.19, Platelet Count 516H, Total Bilirubin 0.2 (OLINDA FAIR APRN) Results/Orders Lab Results Laboratory Tests Test 12/23/21 09:36 Range/Units White Blood Count 11.0 4.3-11.0 10^3/uL Red Blood Count 3.16 L 4.30-5.52 10^6/uL Hemoglobin 7.3 L 13.3-17.7 g/dL Hematocrit 25 L 40-54 % Mean Corpuscular Volume 78 L 80-99 fL Mean Corpuscular Hemoglobin 23 L 25-34 pg Mean Corpuscular Hemoglobin Concent 30 L 32-36 g/dL Red Cell Distribution Width 16.6 H 10.0-14.5 % Platelet Count 516 H 130-400 10^3/uL Mean Platelet Volume 11.9 9.0-12.2 fL Immature Granulocyte % (Auto) 1 % Neutrophils (%) (Auto) 72 42-75 % Lymphocytes (%) (Auto) 14 12-44 % Monocytes (%) (Auto) 11 0-12 % Eosinophils (%) (Auto) 2 0-10 % Basophils (%) (Auto) 1 0-10 % Neutrophils # (Auto) 7.9 H 1.8-7.8 10^3/uL Lymphocytes # (Auto) 1.5 1.0-4.0 10^3/uL Monocytes # (Auto) 1.2 H 0.0-1.0 10^3/uL Eosinophils # (Auto) 0.3 0.0-0.3 10^3/uL Basophils # (Auto) 0.1 0.0-0.1 10^3/uL Immature Granulocyte # (Auto) 0.1 0.0-0.1 10^3/uL Sodium Level 139 135-145 MMOL/L Potassium Level 4.0 3.6-5.0 MMOL/L Chloride Level 104 98-107 MMOL/L Carbon Dioxide Level 22 21-32 MMOL/L Anion Gap 13 5-14 MMOL/L Blood Urea Nitrogen 16 7-18 MG/DL Creatinine 1.19 0.60-1.30 MG/DL Estimat Glomerular Filtration Rate 67 BUN/Creatinine Ratio 13 Glucose Level 436 *H 70-105 MG/DL Calcium Level 9.4 8.5-10.1 MG/DL Corrected Calcium 9.5 8.5-10.1 MG/DL Total Bilirubin 0.2 0.1-1.0 MG/DL Aspartate Amino Transf (AST/SGOT) 38 H 5-34 U/L Alanine Aminotransferase (ALT/SGPT) 46 0-55 U/L Alkaline Phosphatase 91 40-136 U/L B-Type Natriuretic Peptide 95.4 <100.0 PG/ML Total Protein 7.7 6.4-8.2 GM/DL Albumin 3.9 3.2-4.5 GM/DL (JANE CARNES MD) My Orders Orders - JANE CARNES MD Ekg Tracing (12/23/21 09:38) Monitor-Rhythm Ecg Trace Only (12/23/21 09:38) (JANE CARNES MD) Vital Signs/I&O 12/23/21 12/23/21 09:15 12:31 Temp 36.3 Pulse 105 94 Resp 16 16 B/P (MAP) 165/81 (109) 168/90 Pulse Ox 92 98 O2 Delivery Room Air Room Air (JANE CARNES MD) Vital Signs/I&O Capillary Refill : Less Than 3 Seconds (OLINDA FAIR APRN) Blood Pressure Mean: 109 Departure Communication (Admissions) 1209-discussed with Dr. Page, will discharge home she will arrange close outpatient follow-up this week. Currently we cannot transfuse with a hemoglobin of 7.3 given the blood shortage. He has stable up walking around the room. He is still convinced his anemia is from bedbug infestation. He denies any dark stools bloody stools abdominal pain or hematemesis. (OLINDA FAIR APRN) Impression Primary Impression: Symptomatic anemia Disposition: 01 HOME, SELF-CARE Condition: Stable Departure-Patient Inst. Decision time for Depature: 11:36 (OLINDA FAIR APRN) Referrals: [facility] (PCP) Primary Care Physician SOBIA PALMA (Family) Primary Care Physician Patient Instructions: Anemia Caused by Low Iron Add. Discharge Instructions: 1. Follow-up with Dr. Page or someone at [facility]. Call them today to make an appointment to be seen this week. All discharge instructions reviewed with patient and/or family. Voiced understanding. ATTENDING PHYSICIAN NOTE: I was physically present as attending physician in the emergency department during the care of this patient, but I was not directly involved in the decision making or delivery of care for this patient. (JANE CARNES MD) OLINDA FAIR APRN Dec 23, 2021 10:41 JANE CARNES MD Dec 24, 2021 22:27
[2021-12-23 10:46] LABS: BASOPHILS # (AUTO) 0.1 10^3/uL (0.0-0.1); BASOPHILS % (AUTO) 1 % (0-10); EOSINOPHILS # (AUTO) 0.3 10^3/uL (0.0-0.3); EOSINOPHILS % (AUTO) 2 % (0-10); HEMATOCRIT 25 % (40-54); HEMOGLOBIN 7.3 g/dL (13.3-17.7); LYMPHOCYTES # (AUTO) 1.5 10^3/uL (1.0-4.0); LYMPHOCYTES % (AUTO) 14 % (12-44); MEAN CORPUSCULAR HEMOGLOBIN 23 pg (25-34); MEAN CORPUSCULAR HGB CONC 30 g/dL (32-36); MEAN CORPUSCULAR VOLUME 78 fL (80-99); MEAN PLATELET VOLUME 11.9 fL (9.0-12.2); MONOCYTES # (AUTO) 1.2 10^3/uL (0.0-1.0); MONOCYTES % (AUTO) 11 % (0-12); NEUTROPHILS # (AUTO) 7.9 10^3/uL (1.8-7.8); NEUTROPHILS % (AUTO) 72 % (42-75); PLATELET COUNT 516 10^3/uL (130-400)
[2021-12-23 10:51] LABS: ALBUMIN 3.9 GM/DL (3.2-4.5)
[2021-12-23 10:52] LABS: CALCIUM 9.4 MG/DL (8.5-10.1)
[2021-12-23 10:54] LABS: TOTAL PROTEIN 7.7 GM/DL (6.4-8.2)
[2021-12-23 10:55] LABS: BILIRUBIN,TOTAL 0.2 MG/DL (0.1-1.0)
[2021-12-23 10:57] LABS: CREATININE SERUM 1.19 MG/DL (0.60-1.30)
[2021-12-23] MEDS ORDERED: inSUlin (REGULAR) HUMAN 1 UNIT/0.01 ML (CHARGE PER UNIT) SC ONE (11:45)
[2021-12-23 12:31] VITALS: BP 168/90
== END 2021-12-23 12:31 | disposition home or self-care (01) ==
LOC: EDUNIT# 09:14 → ER 09:15
DX: D64.9 Anemia, unspecified (principal); G47.30 Sleep apnea, unspecified; I10 Essential (primary) hypertension; E11.9 Type 2 diabetes mellitus without complications; E66.9 Obesity, unspecified; Z68.39 Body mass index [BMI] 39.0-39.9, adult; Z79.84 Long term (current) use of oral hypoglycemic drugs; Z79.899 Other long term (current) drug therapy
CPT/HCPCS: 36415; 80053; 83880; 85025; 93005

== ENCOUNTER 2022-02-01 13:16 | Emergency (ER) | payer MEDICARE ==
[~2022-02-01] VITALS: Ht 180.3 cm; Wt 131.5 kg
[2022-02-01 13:53] LABS: BASOPHILS # (AUTO) 0.1 10^3/uL (0.0-0.1); BASOPHILS % (AUTO) 0 % (0-10); EOSINOPHILS # (AUTO) 0.3 10^3/uL (0.0-0.3); EOSINOPHILS % (AUTO) 3 % (0-10); HEMATOCRIT 29 % (40-54); HEMOGLOBIN 8.1 g/dL (13.3-17.7); LYMPHOCYTES # (AUTO) 1.6 10^3/uL (1.0-4.0); LYMPHOCYTES % (AUTO) 14 % (12-44); MEAN CORPUSCULAR HEMOGLOBIN 20 pg (25-34); MEAN CORPUSCULAR HGB CONC 28 g/dL (32-36); MEAN CORPUSCULAR VOLUME 72 fL (80-99); MEAN PLATELET VOLUME 10.3 fL (9.0-12.2); MONOCYTES # (AUTO) 1.3 10^3/uL (0.0-1.0); MONOCYTES % (AUTO) 11 % (0-12); NEUTROPHILS # (AUTO) 8.3 10^3/uL (1.8-7.8); NEUTROPHILS % (AUTO) 72 % (42-75); PLATELET COUNT 465 10^3/uL (130-400); WHITE BLOOD COUNT 11.6 10^3/uL (4.3-11.0)
--- NOTE | 2022-02-01 13:54 | ED General ---
General Stated Complaint: WEAKNESS - SOA Source of Information: Patient Exam Limitations: No Limitations History of Present Illness Date Seen by Provider: Feb 01, 2022 Time Seen by Provider: 13:50 Initial Comments To ER with reports of general weakness and shortness of breath. The shortness of breath is all the time and not just with activity. He denies any nausea vomiting fevers chills chest pain or cough. He has been here couple of times for this. Most recently found to be anemic and was given some outpatient blood transfusion. He followed up with primary care but states that to his knowledge she has not yet scheduled for colonoscopy. Cause of his anemia is to be determined though he attributed it at least initially to his bedbug infestation. He states that since I saw him last time he has moved out of the house that had the bedbug infestation and into a new house. Patiently, he believes this may be related to his CPAP. He has a CPAP at home with 15 cm of H2O pressure. His son has not the same settings but he feels like his son's CPAP machine produces much more airflow. He is convinced his CPAP is not functioning effectively and this is the cause for his symptoms. Timing/Duration: Constant Severity: Moderate Associated Systoms: Malaise, Weakness Allergies and Home Medications Allergies Coded Allergies: No Known Drug Allergies (Unverified , 07/23/21) Patient Home Medication List Home Medication List Reviewed: Yes Alprazolam (Alprazolam) 1 Mg Tablet, 1 MG PO BID, (Reported) Entered as Reported by: WALKER MEADOWS on 07/23/21 1056 Amoxapine (Amoxapine) 50 Mg Tab, 50 MG PO UD, (Reported) Entered as Reported by: WALKER MEADOWS on 07/23/21 1056 Glipizide (Glipizide) 10 Mg Tablet, 10 MG PO TID, (Reported) Entered as Reported by: WALKER MEADOWS on 07/23/21 1056 Hydrochlorothiazide (Hydrochlorothiazide) 25 Mg Tablet, 25 MG PO DAILY, (Reported) Entered as Reported by: WALKER MEADOWS on 07/23/21 1056 Insulin Detemir (Levemir Flextouch) 100 Unit/1 Ml Insuln.pen, 20 UNIT SQ BID, (Reported) Entered as Reported by: WALKER MEADOWS on 07/23/21 1056 Insulin Regular, Human (Novolin R) 100 Unit/1 Ml Vial, 35 UNIT SQ TIDAC, (Reported) Entered as Reported by: WALKER MEADOWS on 07/23/21 1056 Lisinopril (Lisinopril) 20 Mg Tablet, 20 MG PO DAILY, (Reported) Entered as Reported by: WALKER MEADOWS on 07/23/21 1056 Metformin HCl (Metformin HCl) 1,000 Mg Tablet, 1,000 MG PO BID, (Reported) Entered as Reported by: WALKER MEADOWS on 07/23/21 1056 Verapamil HCl (Verapamil HCl) 80 Mg Tablet, 80 MG PO UD, (Reported) Entered as Reported by: WALKER MEADOWS on 07/23/21 1056 Review of Systems Review of Systems Constitutional: see HPI EENTM: see HPI Respiratory: no symptoms reported Cardiovascular: no symptoms reported Genitourinary: no symptoms reported Musculoskeletal: see HPI Skin: no symptoms reported Psychiatric/Neurological: No Symptoms Reported Hematologic/Lymphatic: No Symptoms Reported Immunological/Allergic: no symptoms reported Past Aufyczv-Lqqknk-Cevnhb Hx Immunizations Up To Date First/Initial COVID19 Vaccinat: MODERNA Second COVID19 Vaccination Ray: MODERNA Third COVID19 Vaccination Date: 10/12 Seasonal Allergies Seasonal Allergies: No Past Medical History Surgeries: No Respiratory: Yes Sleep Apnea Cardiac: Yes High Cholesterol, Hypertension Neurological: Yes ("TOXIC PAINT POISONING") Genitourinary: No Gastrointestinal: No Musculoskeletal: Yes (CARPEL TUNNEL) Endocrine: Yes Diabetes, Non-Insulin dep HEENT: No Cancer: No Psychosocial: No Integumentary: No Physical Exam Vital Signs Vital Signs - First Documented 02/01/22 13:42 Pulse 104 Resp 20 B/P (MAP) 165/83 (110) Pulse Ox 96 O2 Delivery Room Air Capillary Refill : Height, Weight, BMI Height: '" Weight: lbs. oz. kg; 39.00 BMI Method: General Appearance: No Apparent Distress, WD/WN, Chronically ill, Other (No tachycardia or hypoxia. Lungs are clear heart rate is normal, rhythm is normal.) Eyes: Bilateral Eye Normal Inspection, Bilateral Eye PERRL, Bilateral Eye EOMI Neck: Full Range of Motion, Normal Inspection Respiratory: Normal Breath Sounds, No Accessory Muscle Use, No Respiratory Distress Cardiovascular: Regular Rate, Rhythm, Normal Peripheral Pulses Gastrointestinal: Normal Bowel Sounds, Non Tender, Soft Extremity: Normal Capillary Refill, Other (Trace pitting edema bilateral lower extremities) Neurologic/Psychiatric: Alert, Oriented x3 Skin: Normal Color, Warm/Dry Progress/Results/Core Measures Suspected Sepsis SIRS Temperature: Pulse: Respiratory Rate: Laboratory Tests 02/01/22 13:47: White Blood Count 11.6H Blood Pressure / Mean: Laboratory Tests 02/01/22 13:47: Creatinine 1.09, Platelet Count 465H, Total Bilirubin 0.2 Results/Orders Lab Results Laboratory Tests Test 02/01/22 13:47 02/01/22 14:36 Range/Units White Blood Count 11.6 H 4.3-11.0 10^3/uL Red Blood Count 3.98 L 4.30-5.52 10^6/uL Hemoglobin 8.1 L 13.3-17.7 g/dL Hematocrit 29 L 40-54 % Mean Corpuscular Volume 72 L 80-99 fL Mean Corpuscular Hemoglobin 20 L 25-34 pg Mean Corpuscular Hemoglobin Concent 28 L 32-36 g/dL Red Cell Distribution Width 18.3 H 10.0-14.5 % Platelet Count 465 H 130-400 10^3/uL Mean Platelet Volume 10.3 9.0-12.2 fL Immature Granulocyte % (Auto) 0 % Neutrophils (%) (Auto) 72 42-75 % Lymphocytes (%) (Auto) 14 12-44 % Monocytes (%) (Auto) 11 0-12 % Eosinophils (%) (Auto) 3 0-10 % Basophils (%) (Auto) 0 0-10 % Neutrophils # (Auto) 8.3 H 1.8-7.8 10^3/uL Lymphocytes # (Auto) 1.6 1.0-4.0 10^3/uL Monocytes # (Auto) 1.3 H 0.0-1.0 10^3/uL Eosinophils # (Auto) 0.3 0.0-0.3 10^3/uL Basophils # (Auto) 0.1 0.0-0.1 10^3/uL Immature Granulocyte # (Auto) 0.1 0.0-0.1 10^3/uL Sodium Level 138 135-145 MMOL/L Potassium Level 4.1 3.6-5.0 MMOL/L Chloride Level 102 98-107 MMOL/L Carbon Dioxide Level 22 21-32 MMOL/L Anion Gap 14 5-14 MMOL/L Blood Urea Nitrogen 18 7-18 MG/DL Creatinine 1.09 0.60-1.30 MG/DL Estimat Glomerular Filtration Rate 75 BUN/Creatinine Ratio 17 Glucose Level 254 H 70-105 MG/DL Calcium Level 9.6 8.5-10.1 MG/DL Corrected Calcium 9.8 8.5-10.1 MG/DL Total Bilirubin 0.2 0.1-1.0 MG/DL Aspartate Amino Transf (AST/SGOT) 20 5-34 U/L Alanine Aminotransferase (ALT/SGPT) 25 0-55 U/L Alkaline Phosphatase 72 40-136 U/L Troponin I < 0.028 <0.028 NG/ML B-Type Natriuretic Peptide 81.2 <100.0 PG/ML Total Protein 7.2 6.4-8.2 GM/DL Albumin 3.7 3.2-4.5 GM/DL SARS-CoV-2 RNA (RT-PCR) Not Detected Not Detecte My Orders Orders - OLINDA [facility] Type And Screen (02/01/22 13:33) Cbc With Automated Diff (02/01/22 13:33) Bnp [place] (02/01/22 13:33) Comprehensive Metabolic Panel (02/01/22 13:33) Ekg Tracing (02/01/22 13:33) Troponin I [place] (02/01/22 13:33) Covid 19 Inhouse Test (02/01/22 13:33) Ct Angio Chest W (02/01/22 14:31) Iohexol Injection (Omnipaque 350 Mg/Ml 1 (02/01/22 16:15) Received Contrast (Hold Metformin- Contr (02/01/22 16:15) Ns (Ivpb) (Sodium Chloride 0.9% Ivpb Bag (02/01/22 16:15) Medications Given in ED Current Medications Medications Dose Ordered Sig/Kylah Route Start Time Stop Time Status Last Admin Dose Admin Iohexol 100 ml ONCE ONCE IV 02/01/22 16:15 02/01/22 16:16 DC 02/01/22 16:46 75 ML Sodium Chloride 100 ml ONCE ONCE IV 02/01/22 16:15 02/01/22 16:16 DC 02/01/22 16:46 80 ML Vital Signs/I&O 02/01/22 13:42 Pulse 104 Resp 20 B/P (MAP) 165/83 (110) Pulse Ox 96 O2 Delivery Room Air Capillary Refill : Departure Communication (Admissions) NAME: [facility] REC#: [id number] PT STATUS: REG ER : 1955 PHYSICIAN: OLINDA FAIR [facility]OT FLUXER ADMIT DATE: 02/01/22/ER Draft Date of Exam:02/01/22 CT ANGIO CHEST W PROCEDURE: CT angiography of the chest with contrast. TECHNIQUE: Multiple contiguous axial images were obtained through the chest after uneventful bolus administration of intravenous contrast. 3D reconstructed CTA MIP acquisitions were also performed. Auto Exposure Controls were utilized during the CT exam to meet ALARA standards for radiation dose reduction. DATE: February 01, 2022. COMPARISON: Chest radiograph December 10, 2021. INDICATION: 66-year-old male, shortness of breath. History of anemia. FINDINGS: There are linear opacities in the right lower lobe consistent with atelectasis. There is no pneumothorax. There is no pleural effusion. There is no identified pulmonary nodule or lung mass. There is no identified pulmonary embolus. The heart is not enlarged. There is no pericardial effusion. There is no identified abnormally enlarged mediastinal, hilar or axillary lymph node which meets CT size criteria for adenopathy. There is high attenuation in the gallbladder dependently consistent with sludge or stones. There is no evidence of acute cholecystitis. The gallbladder is distended. There are subcentimeter indeterminate low-attenuation right adrenal nodules. There are multilevel degenerative changes of the spine. There is no identified acute bony abnormality. IMPRESSION: CT chest: 1. No identified pulmonary embolus or other acute cardiopulmonary abnormality. 2. Cholelithiasis and/or gallbladder sludge without evidence of acute cholecystitis. Dictated on workstation # [id number] Dict: 02/01/225 Trans: 02/01/222 [facility] [id number] Interpreted by: DIEGO DIOR MD Electronically signed by: Joann Primary Impression: Dyspnea Additional Impression: Obstructive sleep apnea Disposition: 01 HOME, SELF-CARE Condition: Stable Departure-Patient Inst. Decision time for Depature: 16:39 Referrals: [facility] (PCP) Primary Care Physician SOBIA PALMA (Family) Primary Care Physician PETERSON LANGSTON MD FACP FAC CCDS JALEEL BRENNAN MD, DAVID L JR, MD Patient Instructions: Shortness of Breath (Dyspnea) Add. Discharge Instructions: 1. Call a personnel clerks supervisor of your choosing tomorrow to make an appointment to be seen for follow-up. Return to ER for any concerns. Copy Copies To 1: FRITZ RODRIGUEZ PETER J APRN Feb 01, 2022 13:53
[2022-02-01 14:06] LABS: ALBUMIN 3.7 GM/DL (3.2-4.5); CHLORIDE 102 MMOL/L (98-107); POTASSIUM 4.1 MMOL/L (3.6-5.0); SODIUM 138 MMOL/L (135-145)
[2022-02-01 14:07] LABS: CALCIUM 9.6 MG/DL (8.5-10.1)
[2022-02-01 14:08] LABS: GLUCOSE 254 MG/DL (70-105); TOTAL PROTEIN 7.2 GM/DL (6.4-8.2)
[2022-02-01 14:09] LABS: CARBON DIOXIDE 22 MMOL/L (21-32)
[2022-02-01 14:10] LABS: BILIRUBIN,TOTAL 0.2 MG/DL (0.1-1.0)
[2022-02-01 14:12] LABS: ALKALINE PHOSPHATASE 72 U/L (40-136); CREATININE SERUM 1.09 MG/DL (0.60-1.30); GFR ESTIMATED 75
[2022-02-01 14:13] LABS: BUN/CREATININE RATIO 17
[2022-02-01 14:15] LABS: ALANINE AMINOTRANSFERASE 25 U/L (0-55)
[2022-02-01] MEDS ORDERED: HOLD METFORMIN - RECEIVED CONTRAST 20 ML VIAL IV SCH (16:15)
[2022-02-01] MEDS ORDERED: NS 100 ML (IVPB) BAG IV ONE (16:15)
[2022-02-01] MEDS ORDERED: IOHEXOL 350 MG/ML 100 ML (OMNIPAQUE 350) VIAL IV ONE (16:15)
--- NOTE | 2022-02-01 17:03 | Diagnostic Imaging Report ---
PROCEDURE: CT angiography of the chest with contrast. TECHNIQUE: Multiple contiguous axial images were obtained through the chest after uneventful bolus administration of intravenous contrast. 3D reconstructed CTA MIP acquisitions were also performed. Auto Exposure Controls were utilized during the CT exam to meet ALARA standards for radiation dose reduction. DATE: February 01, 2022. COMPARISON: Chest radiograph December 10, 2021. INDICATION: 66-year-old male, shortness of breath. History of anemia. FINDINGS: There are linear opacities in the right lower lobe consistent with atelectasis. There is no pneumothorax. There is no pleural effusion. There is no identified pulmonary nodule or lung mass. There is no identified pulmonary embolus. The heart is not enlarged. There is no pericardial effusion. There is no identified abnormally enlarged mediastinal, hilar or axillary lymph node which meets CT size criteria for adenopathy. There is high attenuation in the gallbladder dependently consistent with sludge or stones. There is no evidence of acute cholecystitis. The gallbladder is distended. There are subcentimeter indeterminate low-attenuation right adrenal nodules. There are multilevel degenerative changes of the spine. There is no identified acute bony abnormality. IMPRESSION: CT chest: 1. No identified pulmonary embolus or other acute cardiopulmonary abnormality. 2. Cholelithiasis and/or gallbladder sludge without evidence of acute cholecystitis. Dictated by: Dictated on workstation # [id number]
[2022-02-01 17:32] VITALS: BP 156/95
== END 2022-02-01 17:32 | disposition home or self-care (01) ==
LOC: EDUNIT# 13:16 → ER 13:17
DX: R06.00 Dyspnea, unspecified (principal); G47.33 Obstructive sleep apnea (adult) (pediatric); Z20.822 Contact with and (suspected) exposure to COVID-19
CPT/HCPCS: 36415; 71275; 80053; 83880; 84484; 85025; 87636; 93005

== ENCOUNTER → 2022-03-26 | Outpatient (CLI) | payer MEDICARE ==
[~2022-03-26] VITALS: Ht 180 cm; Wt 132.0 kg
[~2022-03-26] MED LIST changes: +CATHETER FLUSH 10 ML SYR IVP PRN; +REGADENOSON 0.4 MG/5 ML SYR (LEXISCAN) IV ONE
[2022-03-26 12:54] VITALS: BP 232/91
--- NOTE | 2022-03-27 08:15 | NUCLEAR STRESS TEST ---
REGADENOSON NUCLEAR STRESS Date of procedure: 03/26/2022. Primary care provider: SHANNON Goss Admitting physician: Kadeem Watkins Jr., MD. INDICATION: Abnormal electrocardiogram. BASELINE ELECTROCARDIOGRAM: Sinus rhythm with early transition. STRESS TEST PROCEDURE: The patient was administered 0.4 mg of intravenous Regadenoson. The resting heart rate was 95 bpm and the peak heart rate was 102 bpm. The resting blood pressure was 232/91 mmHg and the minimum blood pressure was 156/75 mmHg. This represents a normal heart rate and a normal blood pressure response to Regadenoson with resting hypertension. The test was stopped due to the protocol. There was no chest discomfort during the test. There were no arrhythmias during the test. There were no significant stress induced electrocardiogram changes. NUCLEAR PROCEDURE: The patient was administered 10.6 mCi of intravenous technetium 99m Tetrofosmin at rest for the rest images. The patient was subsequently administered 33 mCi of intravenous technetium 99m Tetrofosmin at peak stress for the stress images. Following an appropriate wait after each in jection, imaging was obtained. The images were subsequently processed and reformatted in the usual views. Gated imaging was obtained. The image quality was adequate with a mild degree of gastrointestinal attenuation artifact. CT attenuation correction was used as a adjunct to standard imaging. Both the corrected and uncorrected images were reviewed for interpretation. NUCLEAR RESULTS: There was a large, moderate intensity, reversible apical defect with a large amount of inducible ischemia with a summed stress score of 10 and a summed difference score of 10. There was normal left ventricular chamber size with an end-diastolic volume of 75 mL and an end-systolic volume of 19 mL. There was no evidence of transient ischemic dilatation. The TID ratio was 1.11. There was normal wall motion in all segments with a calculated ejection fraction of 74%. IMPRESSION: 1. Normal heart rate and blood pressure response to regadenoson with resting hypertension. 2. There was no chest discomfort, arrhythmias, or electrocardiogram changes during the test. 3. There was a large, moderate intensity, reversible apical defect with a large amount of inducible ischemia with a summed stress score of 10 and a summed difference score of 10. 4. There was normal wall motion in all segments with a calculated ejection fraction of 74%. 5. This is an abnormal result representing an overall high risk for possible future coronary ischemic events. Certain portions of this document may have been dictated utilizing voice recognition technology. Inherent to this technology, typographical and grammatical errors may exist. As much as I am diligent to identify and correct these mistakes, some errors may remain in the document. KADEEM WATKINS JR, MD March 27, 2022 08:15
== END ==
LOC: CARD 12:00
PROVIDERS: ATTEND Internal Medicine Cardiovascular Disease
DX: I08.0 Rheumatic disorders of both mitral and aortic valves (principal)
CPT/HCPCS: 78452; 93017; 93306; A9502

== ENCOUNTER 2022-04-02 09:30 | Day surgery (SDC) | payer MEDICARE ==
[2022-04-02] VITALS (9 sets, daily range): BP systolic 102–178; BP diastolic 65–93
[~2022-04-02] VITALS: Ht 180.3 cm; Wt 127.8 kg
--- NOTE | 2022-04-02 08:29 | Consultation-Cardiology ---
HPI-Cardiology Cardiology Consultation: Date of Consultation 04/02/22 Date of Admission 04/02/22 Attending Physician Sobia Watkins Jr, MD Admitting Physician [facility] Consulting Physician SOBIA WATKINS JR, MD HPI: Time Seen by a Provider: 08:23 Chief Complaint: THIS IS A HISTORY AND PHYSICAL FOR OUTPATIENT CARDIAC CATHETERIZATION CHIEF COMPLAINT: Dyspnea on exertion Ganesh is a pleasant 66-year-old male with no previously known history of coronary artery disease who has a long history of dyspnea on exertion. However, over the past few months, he has been having increasing dyspnea on exertion as well as orthopnea and paroxysmal nocturnal dyspnea. He denies chest discomfort. Because of these symptoms I had him undergo a nuclear stress test which showed a large reversible apical defect with a large amount of inducible ischemia with a normal ejection fraction. In light of the severe abnormality on his stress test, he is now referred for further evaluation with a cardiac catheterization. He denies palpitations, lightheadedness, syncope, or ankle edema. Certain portions of this document may have been dictated utilizing voice recognition technology. Inherent to this technology, typographical and grammatical errors may exist. As much as I am diligent to identify and correct these mistakes, some errors may remain in the document. Review of Systems-Cardiology Review of Systems Other comments Review of 10 organ systems is as per the history of present illness, otherwise negative. AMM-Iayisd-Cdbldv Hx Patient Social History Smoking Status: Never a Smoker 2nd Hand Smoke Exposure: No Past Medical History PMH As described under Assessment. Family Medical History Family Medical History: The patient does not know of any family history of premature coronary artery disease in first-degree relatives. Allergies and Home Medications Allergies Coded Allergies: acetaminophen (Verified Allergy, Unknown, 04/02/22) Patient Home Medication List Home Medication List Reviewed: Yes Alprazolam (Alprazolam) 1 Mg Tablet, 1 MG PO DAILY, (Reported) Entered as Reported by: WALKER MEADOWS on 07/23/21 1056 Last Action: Reviewed Amoxapine (Amoxapine) 100 Mg Tablet, 100 MG PO DAILY, (Reported) Entered as Reported by: JEREMY SANTOYO on 04/02/22 0809 Last Action: Reviewed Glipizide (Glipizide) 10 Mg Tablet, 10 MG PO BID, (Reported) Entered as Reported by: WALKER MEADOWS on 07/23/211055 Last Action: Reviewed Hydrochlorothiazide (Hydrochlorothiazide) 25 Mg Tablet, 25 MG PO DAILY, (Reported) Entered as Reported by: WALKER MEADOWS on 07/23/211055 Last Action: Reviewed Insulin Aspart (Novolog Flexpen) 100 Unit/Ml (3 Ml) Solution, 35 UNITS SQ AC, (Reported) Entered as Reported by: JEREMY SANTOYO on 04/02/22808 Last Action: Reviewed Insulin Detemir (Levemir Flextouch) 100 Unit/1 Ml Insuln.pen, 20 UNIT SQ DAILY, (Reported) Entered as Reported by: WALKER MEADOWS on 07/23/211055 Last Action: Reviewed Liraglutide (Victoza 3-Renny) 0.6 Mg/0.1 Ml (18 Mg/3 Ml) Pen.injctr, 1.8 MG SQ DAILY, (Reported) Entered as Reported by: JEREMY SANTOYO on 04/02/22808 Last Action: Reviewed Lisinopril (Lisinopril) 20 Mg Tablet, 20 MG PO DAILY, (Reported) Entered as Reported by: WALKER MEADOWS on 07/23/211055 Last Action: Reviewed Metformin HCl (Metformin HCl) 1,000 Mg Tablet, 1,000 MG PO BID, (Reported) Entered as Reported by: WALKER MEADOWS on 07/23/211055 Last Action: Reviewed Verapamil HCl (Verapamil HCl) 80 Mg Tablet, 80 MG PO BID, (Reported) Entered as Reported by: WALKER MEADOWS on 07/23/211055 Last Action: Reviewed Discontinued Medications Amoxapine (Amoxapine) 50 Mg Tab, 50 MG PO UD, (Reported) Discontinued Reason: Prescription changed Entered as Reported by: WALKER MEADOWS on 07/23/211055 Insulin Regular, Human (Novolin R) 100 Unit/1 Ml Vial, 35 UNIT SQ TIDAC, (Reported) Discontinued Reason: No Longer Taking Entered as Reported by: WALKER MEADOWS on 07/23/211055 Last Action: Discontinued Exam Vital Signs Vital Signs Date Time Temp Pulse Resp B/P (MAP) Pulse Ox O2 Delivery O2 Flow Rate FiO2 04/02/22 07:55 36.5 107 16 178/92 (120) 95 Room Air Physical Exam General: Alert. No acute distress. Well nourished and appears stated age. He is obese. Eye: Extraocular movements are intact. Conjunctivae are clear. There are no xanthelasma. HENT: Normocephalic. Atraumatic. Carotid pulsations 2/2 without bruits. Neck: Jugular venous pressure does not appear elevated. No thyromegaly appreciated. Respiratory: Lungs are clear to auscultation. Respirations are non-labored. Breath sounds are equal. Symmetrical chest wall expansion. Cardiovascular: Normal rate. Regular rhythm. No murmur. No gallop. Point of maximal impulse is not appear displaced. Good pulses equal in all extremities. No edema. Gastrointestinal: Soft. Normal bowel sounds. Skin: Skin turgor is normal. There is no pallor. Musculoskeletal: No kyphosis or scoliosis appreciated. Neurologic: Alert and oriented to person, place, time. Cranial nerves 3-12 appear grossly intact. The patient has good motor tone strength in the upper and lower extremities bilaterally. Psychiatric: Cooperative. Appropriate mood & affect. Radiology REGADENOSON NUCLEAR STRESS TEST (03/26/2022): 1. Normal heart rate and blood pressure response to regadenoson with resting hypertension. 2. There was no chest discomfort, arrhythmias, or electrocardiogram changes during the test. 3. There was a large, moderate intensity, reversible apical defect with a large amount of inducible ischemia with a summed stress score of 10 and a summed difference score of 10. 4. There was normal wall motion in all segments with a calculated ejection f raction of 74%. 5. This is an abnormal result representing an overall high risk for possible future coronary ischemic events. ECHOCARDIOGRAM (03/26/2022): 1. Normal left ventricular chamber size with moderate concentric hypertrophy. Normal left ventricular systolic function with an estimated ejection fraction of 65-70% with no regional wall motion abnormalities identified. 2. The left ventricular diastolic function is indeterminate. 3. The right atrium is mildly dilated with an area of 19 cm. 4. There is mild mitral annular calcification. 5. There is mild aortic valve sclerosis. 6. Aortic root is dilated at 4.2 cm. 7. The pulmonary artery pressure cannot be estimated on this study due to inadequate tricuspid regurgitant envelope. CT ANGIOGRAPHY OF THE CHEST WITH CONTRAST (02/01/2022): 1. No identified pulmonary embolus or other acute cardiopulmonary abnormality. 2. Cholelithiasis and/or gallbladder sludge without evidence of acute cholecystitis. LABS (02/01/2022): Sodium 138. Potassium 4.1. BUN 18. Creatinine 1.09. GFR 75. Glucose 254. Liver function tests normal. Troponin I undetectable. BNP 81.2. Hemoglobin 8.1. Platelets 465,000. MCV 72. RDW 18. ELECTROCARDIOGRAM (02/01/2022): Sinus rhythm with left anterior hemiblock and poor R wave progression. SINGLE VIEW OF THE CHEST (12/10/2021): 1. No acute cardiopulmonary findings. Diagnosis/Problems Diagnosis/Problems (1) Abnormal nuclear stress test Assessment & Plan: As above, his nuclear stress test showed a large ischemic defect with a normal ejection fraction. He is here today for cardiac catheterization. The benefits and risks of the procedure have been explained to the patient and he is in agreement to proceed and has signed the consent form. (2) Thoracic aortic aneurysm without rupture Assessment & Plan: His echocardiogram showed mild dilatation of the thoracic aorta. This will need to be followed longitudinally. (3) Primary hypertension Assessment & Plan: Continue current antihypertensive medication. (4) Mixed hyperlipidemia Assessment & Plan: He does not currently appear to be taking a statin med ication. This may need to be addressed. (5) Type 2 diabetes mellitus without complication Assessment & Plan: Metformin is on hold due to the intra-arterial contrast that will be administered during today's cardiac catheterization. (6) Obesity Assessment & Plan: He needs to work on weight loss. SOBIA WATKINS JR, MD April 02, 2022 08:28
--- NOTE | 2022-04-02 08:40 | Pre-Op Note & Conscious Sedat ---
Pre-Operative Progress Note H&P Reviewed The H&P was reviewed, patient examined and no changes noted. Date H&P Reviewed: April 02, 2022 Time H&P Reviewed: 08:40 Pre-Op Diagnosis: Abnormal nuclear stress test Given his current clinical status, he is considered vulnerable. Conscious Sedation Pre-Proced ASA Score 2 For ASA 3 and 4: Consider anesthesia and medical clearance. Also, for patients with a history of failed moderate sedation consider anesthesia. Airway Lungs Heart ASA score ASA 1: a normal healthy patient ASA 2: a patient with a mild systemic disease (mid diabetes, controlled hypertension, obesity ASA 3: a patient with a severe systemic disease that limits activity (angina, COPD, prior Myocardial infarction) ASA 4: a patient with an incapacitating disease that is a constant threat to l carl (CHF, renal failure) ASA 5: a moribund patient not expected to survive 24 hrs. (ruptured aneurysm) ASA 6: a declared brain- patient whose organs are being harvested. For emergent operations, add the letter E after the classification Mallampati Classification Grade 2 Sedation Plan Analgesia, Amnesia, Plan communicated to team members, Discussed options with patient/fam, Discussed risks with patient/fam The patient is an appropriate candidate to undergo the planned procedure, sedation, and anesthesia. The patient immediately re-assessed prior to indication. SOBIA BOWERS JR, MD April 02, 2022 08:40
[2022-04-02 08:59] LABS: BASOPHILS # (AUTO) 0.1 10^3/uL (0.0-0.1); BASOPHILS % (AUTO) 1 % (0-10); EOSINOPHILS # (AUTO) 0.2 10^3/uL (0.0-0.3); EOSINOPHILS % (AUTO) 2 % (0-10); HEMATOCRIT 31 % (40-54); HEMOGLOBIN 9.2 g/dL (13.3-17.7); LYMPHOCYTES # (AUTO) 1.6 10^3/uL (1.0-4.0); LYMPHOCYTES % (AUTO) 17 % (12-44); MEAN CORPUSCULAR HEMOGLOBIN 21 pg (25-34); MEAN CORPUSCULAR HGB CONC 29 g/dL (32-36); MEAN CORPUSCULAR VOLUME 70 fL (80-99); MEAN PLATELET VOLUME 10.3 fL (9.0-12.2); MONOCYTES # (AUTO) 1.2 10^3/uL (0.0-1.0); MONOCYTES % (AUTO) 13 % (0-12); NEUTROPHILS # (AUTO) 6.2 10^3/uL (1.8-7.8); NEUTROPHILS % (AUTO) 67 % (42-75); PLATELET COUNT 415 10^3/uL (130-400); WHITE BLOOD COUNT 9.4 10^3/uL (4.3-11.0)
[2022-04-02 09:19] LABS: POTASSIUM 4.3 MMOL/L (3.6-5.0)
[2022-04-02 09:20] LABS: CALCIUM 9.3 MG/DL (8.5-10.1)
[2022-04-02 09:24] LABS: CREATININE SERUM 1.13 MG/DL (0.60-1.30)
[2022-04-02 09:26] LABS: INR 1.1 (0.8-1.4); PROTHROMBIN TIME PATIENT 14.7 SEC (12.2-14.7)
[~2022-04-02 09:30] MED LIST changes: +AMOX100T PO; +ASPIRIN 81 MG CHEW (CHILDREN'S ASA) ONE; +ASPIRIN 81 MG CHEW (CHILDREN'S ASA) PO ONE; +CATHETER FLUSH 10 ML SYR IV PRN; -CATHETER FLUSH 10 ML SYR IVP PRN; +HEParin (CATH LAB) 2,000 ML IV ONE; +HEParin 1000 UNIT/ML (10ML VIAL) FOR BOLUS ONE; +INSU100I14 SQ; +LIDOCAINE 1% INJ 20 ML VIAL ONE; +LIRA0.6P3 SQ; +MIDAZOLAM 5 MG/5 ML (VERSED) VIAL ONE; +NITRO DRIP 25000 MCG/D5W 250 ML IV ONE; +NS IV 1000 ML 1,000 ML IV ONE; +NS IV 1000 ML 1,000 ML ONE; -REGADENOSON 0.4 MG/5 ML SYR (LEXISCAN) IV ONE; +VERAPAMIL 5 MG/2 ML (CALAN) VIAL IV ONE; +fentaNYL INJ 100 MCG/2 ML AMP ONE
[2022-04-02] MEDS ORDERED: NS IV 1000 ML 1,000 ML ONE (10:01)
[2022-04-02] MEDS ORDERED: NS IV 1000 ML 1,000 ML IV SCH (11:15)
--- NOTE | 2022-04-02 11:24 | Cardiac Cath Report ---
CARDIAC CATHETERIZATION DATE OF PROCEDURE: 04/02/2022 INDICATION: Abnormal nuclear stress test. HISTORY: The patient is a 66 year old male with no previously known history of coronary artery disease who recently presented with increasing dyspnea on exertion. I had him undergo an outpatient nuclear stress test that showed a large apical ischemic defect with a normal ejection fraction. Therefore, he is now referred for further evaluation with a cardiac catheterization. PROCEDURES PERFORMED: 1. Left heart catheterization with hemodynamic measurements. 2. Diagnostic [place] coronary angiography. 3. Intravascular ultrasound of left anterior descending coronary artery. PROCEDURE DESCRIPTION: After informed consent and in the fasting state, left heart catheterization was performed through the right radial artery utilizing a 6 Burkinan system by percutaneous approach. Standard 5 Burkinan Felicitas catheters and a 5 Burkinan JL 4.5 catheter were utilized for the diagnostic portion of the procedure. A 6 Burkinan CLS 4 guide catheter was utilized for the intravascular ultrasound. All catheters were exchanged over a guidewire. Following the procedure, a vascular band was applied to the radial artery access site and the sheath was removed with good hemostasis. RESULTS: HEMODYNAMICS: The aortic pressure was 161/77 mmHg. Ventricular pressure was 168/0 mmHg with left ventricular end-diastolic pressure of 8 mmHg. There was no significant pressure gradient upon pullback across the aortic valve. CORONARY ANGIOGRAPHY: Coronary arteries were diffusely large in caliber. Left main coronary artery: Free of significant disease. Left anterior descending coronary artery: There was an eccentric 60% stenosis proximally with the appearance of a possible old healed dissection. Left circumflex coronary artery: This was essentially 2 moderate-sized obtuse marginal branches which were free of significant disease. Right coronary artery: Dominant with a high anterior takeoff and free of significant disease. The most distal posterolateral branch had a 50% stenosis proximally. INTRAVASCULAR ULTRASOUND: Intravascular ultrasound was carried out on the proximal left anterior descending coronary artery and left main coronary through the 6 Burkinan CLS 4 guide catheter. I was not sure whether or not what appeared to be a dissection in the left anterior descending coronary artery was dissection or perhaps a totally occluded diagonal branch. I probed the area with a Whisper medium support guidewire and the wire would not advance. I then concluded that this was most likely an old healed dissection. The wire was advanced into the distal vessel. I subsequently performed vascular ultrasound with a SquaredOutoss IVUS catheter. The distal reference luminal diameter of the proximal left anterior descending coronary artery was approximately 5.5 mm. The probe was withdrawn into the area of stenosis into the luminal area was 2.3 mm which yields an approximate stenosis of 65%. The luminal diameter of the left main coronary artery was 6.5 mm. IMPRESSION: 1. Systemic hypertension with normal left ventricular end-diastolic pressure. 2. There is severe disease in the proximal left anterior descending coronary artery as outlined above. This correlates to the zone of ischemia on his stress test. 3. Intravascular ultrasound of the proximal left anterior descending coronary artery revealed a reference lumen diameter is 5.5 mm and a percent stenosis at 65%. 4. The patient is known to have normal left ventricular systolic function with a calculated ejection fraction of 74% by nuclear stress test performed on 03/26/2022. 5. The patient will need intervention to the proximal left anterior descending coronary artery but we need to order some larger stents and balloons due to the large size of his coronary arteries. Certain portions of this document may have been dictated utilizing voice recognition technology. Inherent to this technology, typographical and grammatical errors may exist. As much as I am diligent to identify and correct these mistakes, some errors may remain in the document. SOBIA BOWERS JR, MD April 02, 2022 11:24
[2022-04-02] MEDS ORDERED: CLOP75TA28 PO (12:50)
[2022-04-02] MEDS ORDERED: ASPI-1238 PO (13:46)
[2022-04-03] MEDS ORDERED: ASPIRIN E.C. 81 MG (ECOTRIN) TAB PO SCH (09:00)
[2022-04-03] MEDS ORDERED: CLOPIDOGREL 75 MG (PLAVIX) TABLET PO SCH (09:00)
== END 2022-04-02 14:20 ==
LOC: CATH 09:30 → SDC 11:42 → CATH 14:20
PROVIDERS: ATTEND Internal Medicine Cardiovascular Disease
DX: I25.10 Atherosclerotic heart disease of native coronary artery without angina pectoris (principal); I10 Essential (primary) hypertension; R06.09 Other forms of dyspnea; R35.1 Nocturia
CPT/HCPCS: 80048; 85025; 85610; 87081; 92978; 93458; C1753; C1769; C1887; C1894; 36415

== ENCOUNTER 2022-04-09 08:37 | Day surgery (SDC) | payer MEDICARE ==
[2022-04-09] VITALS (10 sets, daily range): BP systolic 118–168; BP diastolic 72–94
[~2022-04-09] VITALS: Ht 180.3 cm; Wt 132.1 kg
[~2022-04-09 08:37] MED LIST changes: +ASPI-1238 PO; -ASPIRIN 81 MG CHEW (CHILDREN'S ASA) ONE; -ASPIRIN 81 MG CHEW (CHILDREN'S ASA) PO ONE; -CATHETER FLUSH 10 ML SYR IV PRN; +CLOP75TA28 PO; -HEParin (CATH LAB) 2,000 ML IV ONE; -HEParin 1000 UNIT/ML (10ML VIAL) FOR BOLUS ONE; -LIDOCAINE 1% INJ 20 ML VIAL ONE; -MIDAZOLAM 5 MG/5 ML (VERSED) VIAL ONE; -NITRO DRIP 25000 MCG/D5W 250 ML IV ONE; -NS IV 1000 ML 1,000 ML IV ONE; -NS IV 1000 ML 1,000 ML ONE; -VERAPAMIL 5 MG/2 ML (CALAN) VIAL IV ONE; -fentaNYL INJ 100 MCG/2 ML AMP ONE
[2022-04-09] MEDS ORDERED: LIDOCAINE 1% INJ 20 ML VIAL ONE (08:44)
[2022-04-09] MEDS ORDERED: HEParin (CATH LAB) 2,000 ML IV ONE (08:44)
[2022-04-09] MEDS ORDERED: ASPIRIN 81 MG CHEW (CHILDREN'S ASA) PO ONE (08:45)
[2022-04-09] MEDS ORDERED: CATHETER FLUSH 10 ML SYR IV PRN (08:45)
[2022-04-09] MEDS ORDERED: NS IV 1000 ML 1,000 ML IV ONE (08:45)
[2022-04-09] MEDS ORDERED: ASPIRIN 81 MG CHEW (CHILDREN'S ASA) ONE (09:03)
[2022-04-09] MEDS ORDERED: fentaNYL INJ 100 MCG/2 ML AMP ONE (09:12)
[2022-04-09] MEDS ORDERED: VERAPAMIL 5 MG/2 ML (CALAN) VIAL IV ONE (09:12)
[2022-04-09] MEDS ORDERED: MIDAZOLAM 5 MG/5 ML (VERSED) VIAL ONE (09:12)
[2022-04-09] MEDS ORDERED: NITRO DRIP 25000 MCG/D5W 250 ML IV ONE (09:13)
[2022-04-09] MEDS ORDERED: HEParin 1000 UNIT/ML (10ML VIAL) FOR BOLUS ONE (09:13)
--- NOTE | 2022-04-09 09:31 | Pre-Op Note & Conscious Sedat ---
Pre-Operative Progress Note H&P Reviewed The H&P was reviewed, patient examined and no changes noted. Date H&P Reviewed: April 09, 2022 Time H&P Reviewed: 09:30 Pre-Op Diagnosis: Coronary artery disease with angina and abnormal stress test. Given his current clinical status, he is considered vulnerable. Conscious Sedation Pre-Proced ASA Score 2 For ASA 3 and 4: Consider anesthesia and medical clearance. Also, for patients with a history of failed moderate sedation consider anesthesia. Airway Lungs Heart ASA score ASA 1: a normal healthy patient ASA 2: a patient with a mild systemic disease (mid diabetes, controlled hypertension, obesity ASA 3: a patient with a severe systemic disease that limits activity (angina, COPD, prior Myocardial infarction) ASA 4: a patient with an incapacitating disease that is a constant threat to life (CHF, renal failure) ASA 5: a moribund patient not expected to survive 24 hrs. (ruptured aneurysm) ASA 6: a declared brain- patient whose organs are being harvested. For emergent operations, add the letter E after the classification Mallampati Classification Grade 2 Sedation Plan Analgesia, Amnesia, Plan communicated to team members, Discussed options with patient/fam, Discussed risks with patient/fam The patient is an appropriate candidate to undergo the planned procedure, sedation, and anesthesia. The patient immediately re-assessed prior to indication. SOBIA BOWERS JR, MD April 09, 2022 09:31
[2022-04-09] MEDS ORDERED: CLOPIDOGREL 300 MG (PLAVIX) TABLET PO ONE (10:20)
--- NOTE | 2022-04-09 10:40 | Cardiac Cath Report ---
CARDIAC CATHETERIZATION DATE OF PROCEDURE: 04/09/2022 INDICATION: Coronary artery disease with angina pectoris and abnormal nuclear stress test. HISTORY: The patient is a 66 year old male who was seen in the office due to progressive dyspnea on exertion and subsequently underwent a nuclear stress test on 03/26/2022 that showed a large reversible apical defect with a large amount of inducible ischemia. He subsequently underwent a cardiac catheterization here at [facility] in [place], [place] on 04/02/2022 at which time he was found to have significant stenosis of the proximal left anterior descending coronary artery. Intravascular ultrasound was performed at that time that showed a luminal compromise of approximately 70% with a vessel diameter of 5.5 mm. This lesion correlated to the ischemia noted on his stress test. We did not have any noncompliant balloons larger than 4.5 mm at that time. Therefore, I ordered some larger noncompliant balloons in the event we needed to post- dilate a stent and he is now referred for percutaneous intervention of the proximal left anterior descending coronary artery. Given his current clinical status, he is considered vulnerable. PROCEDURES PERFORMED: 1. Drug-eluting stent placement to the proximal left anterior descending coronary artery. PROCEDURE DESCRIPTION: After informed consent and in the fasting state, left heart catheterization was performed through the right radial artery utilizing a 6 Indonesian system by percutaneous approach. A 6 Indonesian CLS 4 guide catheter was utilized for the procedure. The catheter was exchanged over a guidewire. Following the procedure, a vascular band was applied to the radial artery access site and the sheath was removed with good hemostasis. RESULTS: HEMODYNAMICS: The aortic pressure was 102/63 mmHg. The aortic valve was not crossed. CORONARY ANGIOGRAPHY: The left coronary artery was the only vessel studied and attention was mainly focused on the left anterior descending coronary artery. Left main coronary artery: Very large in caliber and free of significant disease. Left anterior descending coronary artery: There was a 70% eccentric stenosis proximally with MIRTA-3 flow. This had the appearance of a possible old healed ruptured plaque. The remainder of the vessel and several diagonal branches were free of significant disease. Left circumflex coronary artery: This was essentially 2 moderate sized obtuse marginal branches which were free of significant disease. PERCUTANEOUS CORONARY INTERVENTION: Percutaneous coronary intervention was carried out on the proximal left anterior descending coronary artery through the 6 Indonesian CLS 4 guide catheter. The lesion was successfully crossed with a Vital Insight guidewire. I subsequently performed coronary angioplasty with a 4 x 12 mm Trek balloon at a pressure of 10 jorge. I subsequently deployed a 5 x 22 mm drug-eluting Resolute Macario stent at a pressure of 16 jorge. Following stent placement, there was 0% residual stenosis with MIRTA-3 flow. There was a good stepup and stepdown at the proximal and distal edges of the stent without evidence of dissection. IMPRESSION: 1. Status post drug-eluting stent placement to the proximal left anterior descending coronary artery with a 5 x 22 mm Resolute [place] stent with 0% residual stenosis and MIRTA-3 flow. 2. The patient is known to have normal left ventricular systolic function with a calculated ejection fraction of 74% by nuclear stress test that was performed on 03/26/2022. Certain portions of this document may have been dictated utilizing voice recognition technology. Inherent to this technology, typographical and grammatical errors may exist. As much as I am diligent to identify and correct these mistakes, some errors may remain in the document. SOBIA BOWERS JR, MD April 09, 2022 10:40
[2022-04-09] MEDS ORDERED: ROSUVASTATIN 10 MG (CRESTOR) TABLET PO SCH ×2 (10:45→21:00)
[2022-04-09] MEDS ORDERED: NS IV 1000 ML 1,000 ML IV SCH (10:45)
[2022-04-09] MEDS ORDERED: ROSU10TA28 PO (10:58)
== END 2022-04-09 14:00 | disposition home or self-care (01) ==
LOC: CATH 08:37 → ICU 10:55 → CATH 14:00
PROVIDERS: ATTEND Internal Medicine Cardiovascular Disease
DX: I25.119 Atherosclerotic heart disease of native coronary artery with unspecified angina pectoris (principal); I10 Essential (primary) hypertension; I71.2 Thoracic aortic aneurysm, without rupture; E78.2 Mixed hyperlipidemia; E11.9 Type 2 diabetes mellitus without complications; E66.9 Obesity, unspecified; R94.39 Abnormal result of other cardiovascular function study
CPT/HCPCS: 87081; 93005; C1725; C1874; C1887; C1894; C9600

== ENCOUNTER 2022-05-31 23:51 | Emergency (ER) | payer MEDICARE ==
[~2022-05-31] VITALS: Ht 180.3 cm; Wt 120.2 kg
[~2022-05-31 23:51] MED LIST changes: +ROSU10TA28 PO
[2022-06-01] MEDS ORDERED: PREG75CA PO ×2 (00:25→00:27)
[2022-06-01] MEDS ORDERED: VALA10004 PO ×2 (00:25→00:27)
[2022-06-01] MEDS ORDERED: ACYC30OI TP ×2 (00:25→00:27)
--- NOTE | 2022-06-01 00:28 | ED Integumentary General ---
General Chief Complaint: Skin/Wound Problems Stated Complaint: SPIDER BITES ON RT SIDE Nursing Triage Note: PT STATES HE IS ITCHY ON HIS RIGHT UPPER BACK AND SIDE. PT STATES HIS SON LOOKED AT IT AND HE THINKS HE WAS BITTEN BY SPIDERS. Allergies and Home Medications Allergies Coded Allergies: acetaminophen (Verified Allergy, Unknown, 04/02/22) Patient Home Medication List Alprazolam (Alprazolam) 1 Mg Tablet, 1 MG PO DAILY, (Reported) Entered as Reported by: WALKER MEADOWS on 07/23/21 1056 Amoxapine (Amoxapine) 100 Mg Tablet, 100 MG PO DAILY, (Reported) Entered as Reported by: JEREMY SANTOYO on 04/02/22 0809 Aspirin (Aspirin EC) 81 Mg Tablet.dr, 81 MG PO DAILY Prescribed by: SOBIA BOWERS JR, MD on 04/02/22 1346 Clopidogrel Bisulfate (Clopidogrel) 75 Mg Tablet, 75 MG PO DAILY Prescribed by: SOBIA BOWERS JR, MD on 04/02/22 1250 Glipizide (Glipizide) 10 Mg Tablet, 10 MG PO BID, (Reported) Entered as Reported by: WALKER MEADOWS on 07/23/21 1056 Hydrochlorothiazide (Hydrochlorothiazide) 25 Mg Tablet, 25 MG PO DAILY, (Reported) Entered as Reported by: WALKER MEADOWS on 07/23/21 1056 Insulin Aspart (Novolog Flexpen) 100 Unit/Ml (3 Ml) Solution, 35 UNITS SQ AC, (Reported) Entered as Reported by: JEREMY SANTOYO on 04/02/22 0809 Insulin Detemir (Levemir Flextouch) 100 Unit/1 Ml Insuln.pen, 20 UNIT SQ DAILY, (Reported) Entered as Reported by: WALKER MEADOWS on 07/23/21 1056 Liraglutide (Victoza 3-Renny) 0.6 Mg/0.1 Ml (18 Mg/3 Ml) Pen.injctr, 1.8 MG SQ YOLANDA LY, (Reported) Entered as Reported by: JEREMY SANTOYO on 04/02/22 0809 Lisinopril (Lisinopril) 20 Mg Tablet, 20 MG PO DAILY, (Reported) Entered as Reported by: WALKER MEADOWS on 07/23/21 1056 Metformin HCl (Metformin HCl) 1,000 Mg Tablet, 1,000 MG PO BID, (Reported) Entered as Reported by: WALKER MEADOWS on 07/23/21 1056 Rosuvastatin Calcium (Rosuvastatin Calcium) 10 Mg Tablet, 10 MG PO HS Prescribed by: SOBIA BOWERS JR, MD on 04/09/22 1058 Verapamil HCl (Verapamil HCl) 80 Mg Tablet, 80 MG PO BID, (Reported) Entered as Reported by: WALKER MEADOWS on 07/23/21 1056 Past Sxnxyaa-Npmlvm-Jujoeu Hx Immunizations Up To Date First/Initial COVID19 Vaccinat: 10/12 Second COVID19 Vaccination Ray: 10/12 Third COVID19 Vaccination Date: 10/12 Seasonal Allergies Seasonal Allergies: No Past Medical History Surgeries: No Respiratory: Yes Sleep Apnea Currently Using CPAP: Yes Cardiac: Yes High Cholesterol, Hypertension Neurological: Yes ("TOXIC PAINT POISONING") Genitourinary: No Gastrointestinal: No Musculoskeletal: Yes (CARPEL TUNNEL) Endocrine: Yes Diabetes, Non-Insulin dep HEENT: No Cancer: No Psychosocial: No Integumentary: No Physical Exam Vital Signs Vital Signs - First Documented 06/01/22 00:05 Temp 36.8 Pulse 110 Resp 18 B/P (MAP) 128/76 (93) Pulse Ox 97 Capillary Refill : Progress/Results/Core Measures Results/Orders My Orders Orders - LETICIA RODRIGUEZ DO Acyclovir Capsule/Tablet (Zovirax Caps (06/01/22 00:30) Vital Signs/I&O 06/01/22 00:05 Temp 36.8 Pulse 110 Resp 18 B/P (MAP) 128/76 (93) Pulse Ox 97 Blood Pressure Mean: 93 Departure Impression Primary Impression: SHINGLES OF RIGHT TRUNK Disposition: 01 HOME, SELF-CARE Condition: Stable Departure-Patient Inst. Decision time for Depature: 00:24 Referrals: [facility] (PCP) Primary Care Physician SOBIA PALMA PA (Family) Primary Care Physician Patient Instructions: Shingles (DC) Add. Discharge Instructions: KEEP AREA CLEAN AND DRY--IF THE AREAS BEGIN TO DRAIN , COVER WITH NON-ADHERENT DRESSING DO NOT POP, PICK AT, POKE OR SQUEEZE THE AREAS FOLLOW UP WITH [facility] IN 3-4 DAYS FOR FURTHER CARE All discharge instructions reviewed with patient and/or family. Voiced understanding. Scripts Pregabalin (Lyrica) 75 Mg Capsule 75 MG PO BID, #20 CAP Prov: LETICIA RODRIGUEZ DO 06/01/22 Acyclovir (Zovirax) 5 % Oint 30 GM TP Q3-4 HOURS, #1 TUBE Prov: LETICIA RODRIGUEZ DO 06/01/22 Valacyclovir HCl (Valtrex) 1,000 Mg Tablet 1000 MG PO TIDAC, #30 TAB Prov: LETICIA RODRIGUEZ DO 06/01/22 LETICIA RODRIGUEZ DO Jun 01, 2022 00:28
[2022-06-01] MEDS ORDERED: ACYCLOVIR 400 MG TABLET (ZOVIRAX) PO SCH (00:30)
[2022-06-01 00:40] VITALS: BP 128/76
== END 2022-06-01 00:40 | disposition home or self-care (01) ==
LOC: EDUNIT# 23:51 → ER 23:54
DX: B02.9 Zoster without complications (principal); G47.30 Sleep apnea, unspecified; Z99.89 Dependence on other enabling machines and devices
CPT/HCPCS: 99283

== ENCOUNTER 2022-10-29 11:10 | Emergency (ER) | payer MEDICARE ==
[~2022-10-29] VITALS: Ht 180 cm; Wt 117.9 kg
[~2022-10-29 11:10] MED LIST changes: +ACYC30OI TP; +PREG75CA PO; +VALA10004 PO
[2022-10-29 13:28] LABS: BILIRUBIN,URINE NEGATIVE (NEGATIVE); CLARITY,URINE CLEAR; COLOR,URINE YELLOW; GLUCOSE, URINE (UA) 3+ (NEGATIVE); KETONES,URINE NEGATIVE (NEGATIVE); LEUKOCYTE ESTERASE ,URINE NEGATIVE (NEGATIVE); NITRITE,URINE NEGATIVE (NEGATIVE); PH,URINE 5.5 (5-9); PROTEIN,URINE NEGATIVE (NEGATIVE)
[2022-10-29 13:37] LABS: BACTERIA,URINE NEGATIVE /HPF
[2022-10-29 14:02] LABS: BASOPHILS # (AUTO) 0.1 10^3/uL (0.0-0.1); BASOPHILS % (AUTO) 1 % (0-10); EOSINOPHILS # (AUTO) 0.3 10^3/uL (0.0-0.3); EOSINOPHILS % (AUTO) 3 % (0-10); HEMATOCRIT 44 % (40-54); HEMOGLOBIN 14.1 g/dL (13.3-17.7); LYMPHOCYTES # (AUTO) 1.6 10^3/uL (1.0-4.0); LYMPHOCYTES % (AUTO) 16 % (12-44); MEAN CORPUSCULAR HEMOGLOBIN 28 pg (25-34); MEAN CORPUSCULAR HGB CONC 32 g/dL (32-36); MEAN CORPUSCULAR VOLUME 86 fL (80-99); MEAN PLATELET VOLUME 10.5 fL (9.0-12.2); MONOCYTES # (AUTO) 1.1 10^3/uL (0.0-1.0); MONOCYTES % (AUTO) 11 % (0-12); NEUTROPHILS # (AUTO) 6.9 10^3/uL (1.8-7.8); NEUTROPHILS % (AUTO) 69 % (42-75); PLATELET COUNT 309 10^3/uL (130-400)
[2022-10-29 14:05] LABS: ALBUMIN 4.2 GM/DL (3.2-4.5)
[2022-10-29 14:06] LABS: POTASSIUM 4.1 MMOL/L (3.6-5.0)
[2022-10-29 14:07] LABS: CALCIUM 10.2 MG/DL (8.5-10.1)
[2022-10-29 14:08] LABS: TOTAL PROTEIN 7.8 GM/DL (6.4-8.2)
[2022-10-29 14:10] LABS: BILIRUBIN,TOTAL 0.2 MG/DL (0.1-1.0)
[2022-10-29] MEDS ORDERED: NS IV 1000 ML 1,000 ML IV SCH (14:30)
[2022-10-29] MEDS ORDERED: CYCL5TAB PO (14:40)
--- NOTE | 2022-10-29 14:40 | ED General ---
General Chief Complaint: Back Problems Stated Complaint: LEG CRAMPS | LOWER BACK PAIN Nursing Triage Note: PT PRESENTS TO ED VIA POV FROM HOME WITH COMPLAINTS OF LEG MUSCLE CARMPS AND LOW BACK PAIN X 2 DAYS. PT DENIES ANY URINARY S/S OR RECENT INJURY. Source of Information: Patient Exam Limitations: No Limitations (DEAN BENITEZ APRN) History of Present Illness Date Seen by Provider: Oct 29, 2022 Time Seen by Provider: 11:30 Initial Comments Patient is a 67-year-old male who presents to the emergency department for evaluation of bilateral lower extremity as well as low back cramps for the last 2 to 3 days. Patient denies any injury in the affected areas. Also denies any dysuria, hematuria, or other urinary symptoms. Denies any recent nausea/vomiting/diarrhea. No vision change or focal weakness. (DEAN BENITEZ APRN) Allergies and Home Medications Allergies Coded Allergies: acetaminophen (Verified Allergy, Unknown, 04/02/22) Patient Home Medication List Home Medication List Reviewed: Yes (DEAN BENITEZ APRN) Acyclovir (Zovirax) 5 % Oint, 30 GM TP Q3-4 HOURS Prescribed by: LETICIA RODRIGUEZ on 06/01/22 0027 Alprazolam (Alprazolam) 1 Mg Tablet, 1 MG PO DAILY, (Reported) Entered as Reported by: WALKER MEADOWS on 07/23/21 1056 Amoxapine (Amoxapine) 100 Mg Tablet, 100 MG PO DAILY, (Reported) Entered as Reported by: JEREMY SANTOYO on 04/02/22 0809 Aspirin (Aspirin EC) 81 Mg Tablet.dr, 81 MG PO DAILY Prescribed by: SOBIA BOWERS JR, MD on 04/02/22 1346 Clopidogrel Bisulfate (Clopidogrel) 75 Mg Tablet, 75 MG PO DAILY Prescribed by: SOBIA BOWERS JR, MD on 04/02/22 1250 Cyclobenzaprine HCl (Cyclobenzaprine HCl) 5 Mg Tablet, 5 MG PO TID PRN for CRAMPS Prescribed by: Dean Benitez on 10/29/22 1440 Glipizide (Glipizide) 10 Mg Tablet, 10 MG PO BID, (Reported) Entered as Reported by: WALKER MEADOWS on 07/23/21 1056 Hydrochlorothiazide (Hydrochlorothiazide) 25 Mg Tablet, 25 MG PO DAILY, (Reported) Entered as Reported by: WALKER MEADOWS on 07/23/21 1056 Insulin Aspart (Novolog Flexpen) 100 Unit/Ml (3 Ml) Solution, 35 UNITS SQ AC, (R eported) Entered as Reported by: JEREMY SANTOYO on 04/02/22 0809 Insulin Detemir (Levemir Flextouch) 100 Unit/1 Ml Insuln.pen, 20 UNIT SQ DAILY, (Reported) Entered as Reported by: WALKER MEADOWS on 07/23/21 1056 Liraglutide (Victoza 3-Renny) 0.6 Mg/0.1 Ml (18 Mg/3 Ml) Pen.injctr, 1.8 MG SQ DAILY, (Reported) Entered as Reported by: JEREMY SANTOYO on 04/02/22 0809 Lisinopril (Lisinopril) 20 Mg Tablet, 20 MG PO DAILY, (Reported) Entered as Reported by: WALKER MEADOWS on 07/23/21 1056 Metformin HCl (Metformin HCl) 1,000 Mg Tablet, 1,000 MG PO BID, (Reported) Entered as Reported by: WALKER MEADOWS on 07/23/21 1056 Pregabalin (Lyrica) 75 Mg Capsule, 75 MG PO BID Prescribed by: LETICIA RODRIGUEZ on 06/01/22 0028 Rosuvastatin Calcium (Rosuvastatin Calcium) 10 Mg Tablet, 10 MG PO HS Prescribed by: SOBIA BOWERS JR, MD on 04/09/22 1058 Valacyclovir HCl (Valtrex) 1,000 Mg Tablet, 1,000 MG PO TIDAC Prescribed by: LETICIA ORDRIGUEZ on 06/01/22 0027 Verapamil HCl (Verapamil HCl) 80 Mg Tablet, 80 MG PO BID, (Reported) Entered as Reported by: WALKER MEADOWS on 07/23/21 1056 Review of Systems Review of Systems Constitutional: no symptoms reported EENTM: no symptoms reported Respiratory: no symptoms reported Cardiovascular: no symptoms reported Gastrointestinal: no symptoms reported Genitourinary: no symptoms reported Musculoskeletal: muscle pain, muscle cramps Skin: no symptoms reported Psychiatric/Neurological: No Symptoms Reported Hematologic/Lymphatic: No Symptoms Reported Immunological/Allergic: no symptoms reported (DEAN BENITEZ APRN) Past Mzftsvh-Vsmaza-Djtpkm Hx Patient Social History Tobacco Use?: No Substance use?: No Alcohol Use?: No (DEAN BENITEZ APRN) Immunizations Up To Date First/Initial COVID19 Vaccinat: 10/12 Second COVID19 Vaccination Ray: 10/12 Third COVID19 Vaccination Date: 10/12 (DEAN BENITEZ APRN) Seasonal Allergies Seasonal Allergies: No (DEAN BENITEZ APRN) Past Medical History Surgery/Hospitalization HX: PMH: CORONARY STENT, HTN, DM Surgeries: No Respiratory: Yes Sleep Apnea Currently Using CPAP: Yes Cardiac: Yes High Cholesterol, Hypertension Neurological: Yes ("TOXIC PAINT POISONING") Genitourinary: No Gastrointestinal: No Musculoskeletal: Yes (CARPEL TUNNEL) Endocrine: Yes Diabetes, Non-Insulin dep HEENT: No Cancer: No Psychosocial: No Integumentary: No (DEAN BENITEZ APRN) Physical Exam Vital Signs Vital Signs - First Documented 10/29/22 10/29/22 11:25 15:10 Temp 36.5 Pulse 106 Resp 18 B/P (MAP) 156/81 (106) Pulse Ox 98 O2 Delivery Room Air (JANE CARNES MD) Vital Signs Capillary Refill : Less Than 3 Seconds (DEAN BENITEZ APRN) Height, Weight, BMI Height: '" Weight: lbs. oz. kg; 36.00 BMI Method: General Appearance: No Apparent Distress, WD/WN HEENT: PERRL/EOMI, TMs Normal, Normal ENT Inspection, Pharynx Normal Neck: Full Range of Motion, Normal Inspection, Non Tender, Supple Respiratory: Chest Non Tender, Lungs Clear, Normal Breath Sounds Cardiovascular: Regular Rate, Rhythm, Normal Peripheral Pulses Gastrointestinal: Non Tender, Soft Extremity: Non Tender, No Calf Tenderness Neurologic/Psychiatric: Alert, Oriented x3, No Motor/Sensory Deficits, Normal Mood/Affect, general intern II-XII Norm as Tested Skin: Normal Color, Warm/Dry (DEAN BENITEZ APRN) Progress/Results/Core Measures Suspected Sepsis SIRS Temperature: Pulse: 106 Respiratory Rate: 18 Laboratory Tests 10/29/22 13:55: White Blood Count 10.0 Blood Pressure 156 /81 Mean: 106 Laboratory Tests 10/29/22 13:55: Creatinine 1.00, Platelet Count 309, Total Bilirubin 0.2 (DEAN BENITEZ ARMORED VEHICLE OFFICER) Results/Orders Lab Results Laboratory Tests Test 10/29/22 12:29 10/29/22 13:55 Range/Units Urine Color YELLOW Urine Clarity CLEAR Urine pH 5.5 5-9 Urine Specific [place] 1.025 H 1.016-1.022 Urine Protein NEGATIVE NEGATIVE Urine Glucose (UA) 3+ H NEGATIVE Urine Ketones NEGATIVE NEGATIVE Urine Nitrite NEGATIVE NEGATIVE Urine Bilirubin NEGATIVE NEGATIVE Urine Urobilinogen 0.2 < = 1.0 MG/DL Urine Leukocyte Esterase NEGATIVE NEGATIVE Urine RBC (Auto) NEGATIVE NEGATIVE Urine RBC NONE /HPF Urine WBC NONE /HPF Urine Crystals NONE /LPF Urine Bacteria NEGATIVE /HPF Urine Casts NONE /LPF Urine Mucus NEGATIVE /LPF Urine Culture Indicated NO White Blood Count 10.0 4.3-11.0 10^3/uL Red Blood Count 5.09 4.30-5.52 10^6/uL Hemoglobin 14.1 13.3-17.7 g/dL Hematocrit 44 40-54 % Mean Corpuscular Volume 86 80-99 fL Mean Corpuscular Hemoglobin 28 25-34 pg Mean Corpuscular Hemoglobin Concent 32 32-36 g/dL Red Cell Distribution Width 15.5 H 10.0-14.5 % Platelet Count 309 130-400 10^3/uL Mean Platelet Volume 10.5 9.0-12.2 fL Immature Granulocyte % (Auto) 0 % Neutrophils (%) (Auto) 69 42-75 % Lymphocytes (%) (Auto) 16 12-44 % Monocytes (%) (Auto) 11 0-12 % Eosinophils (%) (Auto) 3 0-10 % Basophils (%) (Auto) 1 0-10 % Neutrophils # (Auto) 6.9 1.8-7.8 10^3/uL Lymphocytes # (Auto) 1.6 1.0-4.0 10^3/uL Monocytes # (Auto) 1.1 H 0.0-1.0 10^3/uL Eosinophils # (Auto) 0.3 0.0-0.3 10^3/uL Basophils # (Auto) 0.1 0.0-0.1 10^3/uL Immature Granulocyte # (Auto) 0.0 0.0-0.1 10^3/uL Sodium Level 142 135-145 MMOL/L Potassium Level 4.1 3.6-5.0 MMOL/L Chloride Level 106 98-107 MMOL/L Carbon Dioxide Level 28 21-32 MMOL/L Anion Gap 8 5-14 MMOL/L Blood Urea Nitrogen 19 H 7-18 MG/DL Creatinine 1.00 0.60-1.30 MG/DL Estimat Glomerular Filtration Rate 82 BUN/Creatinine Ratio 19 Glucose Level 82 70-105 MG/DL Calcium Level 10.2 H 8.5-10.1 MG/DL Corrected Calcium 10.0 8.5-10.1 MG/DL Total Bilirubin 0.2 0.1-1.0 MG/DL Aspartate Amino Transf (AST/SGOT) 16 5-34 U/L Alanine Aminotransferase (ALT/SGPT) 16 0-55 U/L Alkaline Phosphatase 81 40-136 U/L Total Creatine Kinase 124 30-200 U/L Total Protein 7.8 6.4-8.2 GM/DL Albumin 4.2 3.2-4.5 GM/DL (JANE CARNES MD) Vital Signs/I&O 10/29/22 10/29/22 11:25 15:10 Temp 36.5 Pulse 106 90 Resp 18 18 B/P (MAP) 156/81 (106) 143/83 Pulse Ox 98 97 O2 Delivery Room Air (JANE CARNES MD) Vital Signs/I&O Capillary Refill : Less Than 3 Seconds (DEAN BENITEZ APRN) Blood Pressure Mean: 106 Progress Note : Progress Note Patient is nontoxic and well-hydrated on exam. No focal neurologic deficits appreciated. Patient was ambulatory in the room without issue. No significant weakness noted in either lower extremity. Sensation is intact. Vital signs are reassuring. Laboratory evaluation is largely unremarkable. No metabolic derangements appreciated. Discussed supportive care and anticipatory guidance. Follow-up with PCP. Return precautions for urgent symptomology discussed. Patient verbalized understanding. (DEAN BENITEZ APRN) Departure Impression Primary Impression: Cramp of both lower extremities Disposition: HOME, SELF-CARE Condition: Stable Departure-Patient Inst. Decision time for Depature: 14:35 (DEAN BENITEZ APRN) Referrals: MOISÉS WRAY APRN (PCP) Primary Care Physician [facility] (Family) Primary Care Physician Patient Instructions: Muscle Spasm ED Scripts Cyclobenzaprine HCl (Cyclobenzaprine HCl) 5 Mg Tablet 5 MG PO TID PRN for CRAMPS for 10 Days, #20 TAB 0 Refills Prov: DEAN BENITEZ APRN 10/29/22 ATTENDING PHYSICIAN NOTE: I was physically present as attending physician in the emergency department during the care of this patient, but I was not directly involved in the decision making or delivery of care for this patient. (JANE CARNES MD) DEAN BENITEZ APRN Oct 29, 2022 14:40 JANE CARNES MD Oct 30, 2022 01:11
[2022-10-29 15:10] VITALS: BP 143/83
== END 2022-10-29 15:18 | disposition home or self-care (01) ==
LOC: EDUNIT# 11:10 → ER 11:12
DX: R25.2 Cramp and spasm (principal)
CPT/HCPCS: 36415; 80053; 81000; 82550; 85025; 99282

== ENCOUNTER 2022-11-11 15:39 | Emergency (ER) | payer MEDICARE ==
[~2022-11-11] VITALS: Ht 180 cm; Wt 115.0 kg
[~2022-11-11 15:39] MED LIST changes: +CYCL5TAB PO
--- NOTE | 2022-11-11 16:34 | ED General ---
General Chief Complaint: Hip/Pelvic Problems Stated Complaint: LEG/HIP CRAMPING Nursing Triage Note: PT STATES HAS LOWER EXT MUSCLE CRAMPING, WAS SEEN IN ED COUPLE WEEKS AGO FOR SAME CO. STATES NOT GETTING ANY BETTER. 07/01 Source of Information: Patient Exam Limitations: No Limitations History of Present Illness Date Seen by Provider: Nov 11, 2022 Time Seen by Provider: 16:24 Allergies and Home Medications Allergies Coded Allergies: acetaminophen (Verified Allergy, Unknown, 04/02/22) Patient Home Medication List Acyclovir (Zovirax) 5 % Oint, 30 GM TP Q3-4 HOURS Prescribed by: LETICIA RODRIGUEZ on 06/01/22 0027 Alprazolam (Alprazolam) 1 Mg Tablet, 1 MG PO DAILY, (Reported) Entered as Reported by: WALKER MEADOWS on 07/23/21 1056 Amoxapine (Amoxapine) 100 Mg Tablet, 100 MG PO DAILY, (Reported) Entered as Reported by: JEREMY SANTOYO on 04/02/22 0809 Aspirin (Aspirin EC) 81 Mg Tablet.dr, 81 MG PO DAILY Prescribed by: SOBIA BOWERS JR, MD on 04/02/22 1346 Clopidogrel Bisulfate (Clopidogrel) 75 Mg Tablet, 75 MG PO DAILY Prescribed by: SOBIA BOWERS JR, MD on 04/02/22 1250 Cyclobenzaprine HCl (Cyclobenzaprine HCl) 5 Mg Tablet, 5 MG PO TID PRN for CRAMPS Prescribed by: Dean Benitez on 10/29/22 1440 Glipizide (Glipizide) 10 Mg Tablet, 10 MG PO BID, (Reported) Entered as Reported by: WALKER MEADOWS on 07/23/21 1056 Hydrochlorothiazide (Hydrochlorothiazide) 25 Mg Tablet, 25 MG PO DAILY, (Re ported) Entered as Reported by: WALKER MEADOWS on 07/23/21 1056 Insulin Aspart (Novolog Flexpen) 100 Unit/Ml (3 Ml) Solution, 35 UNITS SQ AC, (Reported) Entered as Reported by: JEREMY SANTOYO on 04/02/22 0809 Insulin Detemir (Levemir Flextouch) 100 Unit/1 Ml Insuln.pen, 20 UNIT SQ DAILY, (Reported) Entered as Reported by: WALKER MEADOWS on 07/23/21 1056 Liraglutide (Victoza 3-Renny) 0.6 Mg/0.1 Ml (18 Mg/3 Ml) Pen.injctr, 1.8 MG SQ DAILY, (Reported) Entered as Reported by: JEREMY SANTOYO on 04/02/22 0809 Lisinopril (Lisinopril) 20 Mg Tablet, 20 MG PO DAILY, (Reported) Entered as Reported by: WALKER MEADOWS on 07/23/21 1056 Metformin HCl (Metformin HCl) 1,000 Mg Tablet, 1,000 MG PO BID, (Reported) Entered as Reported by: WALKER MEADOWS on 07/23/21 1056 Pregabalin (Lyrica) 75 Mg Capsule, 75 MG PO BID Prescribed by: LETICIA RODRIGUEZ on 06/01/22 0028 Rosuvastatin Calcium (Rosuvastatin Calcium) 10 Mg Tablet, 10 MG PO HS Prescribed by: SOBIA BOWERS JR, MD on 04/09/22 1058 Valacyclovir HCl (Valtrex) 1,000 Mg Tablet, 1,000 MG PO TIDAC Prescribed by: LETICIA RODRIGUEZ on 06/01/22 0027 Verapamil HCl (Verapamil HCl) 80 Mg Tablet, 80 MG PO BID, (Reported) Entered as Reported by: WALKER MEADOWS on 07/23/21 1056 Past Yqvrqyv-Qfdxwl-Ialvro Hx Patient Social History Tobacco Use?: No Substance use?: No Alcohol Use?: No Pt feels they are or have been: No Immunizations Up To Date Influenza Vaccine Up-to-Date: Yes; Up-to-Date First/Initial COVID19 Vaccinat: 10/12 Second COVID19 Vaccination Ray: 10/12 Third COVID19 Vaccination Date: 10/12 Seasonal Allergies Seasonal Allergies: No Past Medical History Surgery/Hospitalization HX: PMH: CORONARY STENT, HTN, DM Surgeries: No Respiratory: Yes Sleep Apnea Currently Using CPAP: Yes Cardiac: Yes High Cholesterol, Hypertension Neurological: Yes ("TOXIC PAINT POISONING") Genitourinary: No Gastrointestinal: No Musculoskeletal: Yes (CARPEL TUNNEL) Endocrine: Yes Diabetes, Non-Insulin dep HEENT: No Cancer: No Psychosocial: No Integumentary: No Physical Exam Vital Signs Vital Signs - First Documented 11/11/22 15:40 Temp 36.4 Pulse 54 Resp 16 B/P (MAP) 162/93 (116) Pulse Ox 98 Capillary Refill : Less Than 3 Seconds Height, Weight, BMI Height: '" Weight: lbs. oz. kg; 35.00 BMI Method: Progress/Results/Core Measures Suspected Sepsis SIRS Temperature: Pulse: 54 Respiratory Rate: 16 Blood Pressure 162 /93 Mean: 116 Results/Orders Lab Results Laboratory Tests Test 11/11/22 16:44 Range/Units D-Dimer 0.88 H 0.00-0.49 UG/ML Magnesium Level 2.3 1.6-2.4 MG/DL My Orders Orders - KAYKAY PAULINO APRN Magnesium (11/11/22 16:33) Fibrin Degradation Products (11/11/22 16:33) Enoxaparin Injection (Lovenox Injection) (11/11/22 18:30) Enoxaparin Injection (Lovenox Injection) (11/11/22 18:30) Vital Signs/I&O 11/11/22 15:40 Temp 36.4 Pulse 54 Resp 16 B/P (MAP) 162/93 (116) Pulse Ox 98 Capillary Refill : Less Than 3 Seconds Blood Pressure Mean: 116 Departure Impression Primary Impression: Leg cramps Disposition: 01 HOME, SELF-CARE Condition: Improved Departure-Patient Inst. Decision time for Depature: 18:23 Referrals: MOISÉS WRAY APRN (PCP) Primary Care Physician [facility] (Family) Primary Care Physician Patient Instructions: Muscle Spasm ED Add. Discharge Instructions: Plan: 1. You can return tomorrow for ultrasound of your lower extremities, call the number at the top of your outpatient order to schedule. 2. You can take musy-nrg-rlrehvv magnesium glycinate 400 mg/day (or directed per package). I would advise you to take this at night with a glass of water. 3. Follow-up with your primary care provider for your persistent symptoms. 5. Return to the ER for any new, concerning, or worsening symptoms. You were given Lovenox 1.5 mg/kg dosing in the emergency department today. All discharge instructions reviewed with patient and/or family. Voiced understanding. KAYKAY PAULINO APRN Nov 11, 2022 16:34
[2022-11-11] MEDS ORDERED: ENOXAPARIN 40 MG/0.4 ML (LOVENOX) SYR SQ SCH (18:15)
[2022-11-11] MEDS ORDERED: ENOXAPARIN 100 MG/1 ML (LOVENOX) SYR SC ONE (18:30)
[2022-11-11] MEDS ORDERED: ENOXAPARIN 80 MG/0.8 ML (LOVENOX) SYR SC ONE (18:30)
[2022-11-11 18:41] VITALS: BP 136/89
== END 2022-11-11 18:40 | disposition home or self-care (01) ==
LOC: EDUNIT# 15:39 → ER 15:39
DX: R25.2 Cramp and spasm (principal)
CPT/HCPCS: 36415; 83735; 85379

== ENCOUNTER → 2022-11-12 | Outpatient (CLI) | payer MEDICARE ==
--- NOTE | 2022-11-12 11:36 | Diagnostic Imaging Report ---
PROCEDURE: US Venous Lower Ext Eyal. TECHNIQUE: Multiple real-time grayscale images were obtained over the lower extremities in various projections, bilaterally. Additional duplex Doppler and color Doppler images were also obtained. INDICATION: Right leg pain. FINDINGS: Color Doppler imaging shows normal flow throughout the right lower extremity venous system. There is normal compression and augmentation of flow with Doppler sampling. IMPRESSION: No evidence of venous thrombosis. Dictated by: Dictated on workstation # [id number]
== END ==
LOC: RAD 10:30
PROVIDERS: ATTEND Nurse Practitioner Family
DX: M79.604 Pain in right leg (principal)
CPT/HCPCS: 93970

== ENCOUNTER 2022-11-24 10:07 | Emergency (ER) | payer MEDICARE ==
--- NOTE | 2022-11-24 12:05 | ED General ---
General Chief Complaint: General Problems/Pain Stated Complaint: SEVERE BODY PAIN Nursing Triage Note: PT AMB TO RM 9 WITH C/O GENERALIZED PAIN FOR 4-6 WEEKS. PT STATES HE HAS BEEN SEEN HERE BEFORE AND AT HIS PCP OFFICE FOR THIS ISSUES BUT HAS NOT BEEN TOLD WHAT IT IS Source of Information: Patient Exam Limitations: No Limitations (CHANELLE LAI) History of Present Illness Date Seen by Provider: Nov 24, 2022 Time Seen by Provider: 11:50 Initial Comments 67yo M with h/o NIDDM, HTN, anemia due to bedbug infestation, and chronic back and neck pain presents to the ED with c/o worsening generalized muscle and bone aches that started 3-4 months ago. Pt states that pain started out in legs and has progressed up his whole body. Pt seems to be most concerned about benton in lower back, B/L hips, and neck. Pt states pain is dull and "in his bones". States neck pain feels like "bones are grating against eachother" when he moves side to side or lifts arms up. Rates it an 8/10 at rest and 10/10 with ambulation or with getting up from a sitting position. Pt notes that pain is worse in the morning when he gets out of bed and states that he "falls against the wall" when walking to the bathroom due to the pain. Pt was able to drive himself and ambulate in ED without issue or assistance today. Pt states that he has taken OTC Tristin's Back and Bones Mg salicylate that has given him relief. Pt denies trying ibuprofen and tylenol, noting that tylenol and hydrocodone has given him similar muscle aches when used for prolonged periods of time. Pt notes that he has recently been sleeping on the floor, using only a blanket as padding. Pt is on a statin, unsure when it was started, possibly 4 months ago. Pt denies symptoms coinciding with starting statin use. Pt has been here multiple times for same c/o, most recent was on 11/11/22. Workup was unremarkable except for a slightly elevated D-dimer. Pt had a doppler on 11/12/22 that was negative for DVT in RLE. Pt is UTD on flu and COVID vaccinations. Pt denies any recent trauma, car accidents, dark or red urine, recent sick contact, fevers, chills, CP, abd pain, and SOB. (CHANELLE LAI) Initial Comments It was clarified with the radiologist that the ultrasound was negative for DVT bilaterally, not just on the right. (JANE CARNES MD) Allergies and Home Medications Allergies Coded Allergies: acetaminophen (Verified Allergy, Unknown, 04/02/22) Patient Home Medication List Home Medication List Reviewed: Yes (CHANELLE LAI) Acyclovir (Zovirax) 5 % Oint, 30 GM TP Q3-4 HOURS Prescribed by: LETICIA RODRIGUEZ on 06/01/22 0027 Alprazolam (Alprazolam) 1 Mg Tablet, 1 MG PO DAILY, (Reported) Entered as Reported by: WALKER MEADOWS on 07/23/21 1056 Amoxapine (Amoxapine) 100 Mg Tablet, 100 MG PO DAILY, (Reported) Entered as Reported by: JEREMY SANTOYO on 04/02/22 0809 Aspirin (Aspirin EC) 81 Mg Tablet.dr, 81 MG PO DAILY Prescribed by: SOBIA BOWERS JR, MD on 04/02/22 1346 Clopidogrel Bisulfate (Clopidogrel) 75 Mg Tablet, 75 MG PO DAILY Prescribed by: SOBIA BOWERS JR, MD on 04/02/22 1250 Cyclobenzaprine HCl (Cyclobenzaprine HCl) 5 Mg Tablet, 5 MG PO TID PRN for CRAMPS Prescribed by: Dean Benitez on 10/29/22 1440 Gabapentin (Neurontin) 300 Mg Capsule, 300 MG PO BID Prescribed by: JANE BARNES on 11/24/22 1323 Glipizide (Glipizide) 10 Mg Tablet, 10 MG PO BID, (Reported) Entered as Reported by: WALKER MEADOWS on 07/23/21 1056 Hydrochlorothiazide (Hydrochlorothiazide) 25 Mg Tablet, 25 MG PO DAILY, (Reported) Entered as Reported by: WALKER MEADOWS on 07/23/21 1056 Insulin Aspart (Novolog Flexpen) 100 Unit/Ml (3 Ml) Solution, 35 UNITS SQ AC, (Reported) Entered as Reported by: JEREMY SANTOYO on 04/02/22 0809 Insulin Detemir (Levemir Flextouch) 100 Unit/1 Ml Insuln.pen, 20 UNIT SQ DAILY, (Reported) Entered as Reported by: WALKER MEADOWS on 07/23/21 1056 Liraglutide (Victoza 3-Renny) 0.6 Mg/0.1 Ml (18 Mg/3 Ml) Pen.injctr, 1.8 MG SQ DAILY, (Reported) Entered as Reported by: JEREMY SANTOYO on 04/02/22 0809 Lisinopril (Lisinopril) 20 Mg Tablet, 20 MG PO DAILY, (Reported) Entered as Reported by: WALKER MEADOWS on 07/23/21 1056 Metformin HCl (Metformin HCl) 1,000 Mg Tablet, 1,000 MG PO BID, (Reported) Entered as Reported by: WALKER MEADOWS on 07/23/21 1056 Pregabalin (Lyrica) 75 Mg Capsule, 75 MG PO BID Prescribed by: LETICIA RODRIGUEZ on 06/01/22 0028 Rosuvastatin Calcium (Rosuvastatin Calcium) 10 Mg Tablet, 10 MG PO HS Prescribed by: SOBIA BOWERS JR, MD on 04/09/22 1058 Valacyclovir HCl (Valtrex) 1,000 Mg Tablet, 1,000 MG PO TIDAC Prescribed by: LETICIA RODRIGUEZ on 06/01/22 0027 Verapamil HCl (Verapamil HCl) 80 Mg Tablet, 80 MG PO BID, (Reported) Entered as Reported by: WALKER MEADOWS on 07/23/21 1056 Review of Systems Review of Systems Constitutional: No chills, No fever EENTM: No tearing, No epistaxis Respiratory: No cough, No short of breath Cardiovascular: No chest pain, No edema Gastrointestinal: No abdominal pain; constipation (improved); No diarrhea, No melena, No nausea, No vomiting Genitourinary: No dysuria, No hematuria Musculoskeletal: back pain (chronic), joint pain (chronic ), muscle pain, muscle stiffness, muscle cramps, neck pain Skin: No change in color, No change in hair/nails Psychiatric/Neurological: Denies Anxiety, Denies Depressed (CHANELLE LAI) Past Wuzvzaa-Xqkoyc-Ysuypv Hx Patient Social History Tobacco Use?: No Smoking Status: Former Smoker (2 pack years, quit in youth ) Use of E-Cig and/or Vaping dev: No Substance use?: No Alcohol Use?: Yes (quit over 20 years ago ) Alcohol type: Beer Alcohol Frequency: Daily ("as many as I could get" in a day ) Pt feels they are or have been: No (CHANELLE LAI) Immunizations Up To Date Influenza Vaccine Up-to-Date: Yes; Up-to-Date First/Initial COVID19 Vaccinat: 10/12 Second COVID19 Vaccination Ray: YES Third COVID19 Vaccination Date: 10/12 (CHANELLE LAI) Seasonal Allergies Seasonal Allergies: No (CHANELLE LAI) Past Medical History Surgery/Hospitalization HX: PMH: CORONARY STENT, HTN, DM Surgeries: Yes Coronary Stent, Eye Surgery (b/l cataract) Respiratory: Yes Sleep Apnea Currently Using CPAP: Yes Cardiac: Yes High Cholesterol, Hypertension Neurological: Yes ("TOXIC PAINT POISONING") Genitourinary: No Gastrointestinal: No Musculoskeletal: Yes (CARPEL TUNNEL) Chronic Back Pain Endocrine: Yes Diabetes, Non-Insulin dep HEENT: No Cataract (b/l-cataract surgery to repair) Cancer: No Psychosocial: Yes Anxiety, Depression Integumentary: No (CHANELLE LAI) Family Medical History Heart Disease (mother-CHF), Hypertension (multiple family members), Stroke (brother) (CHANELLE LAI) Physical Exam Vital Signs Vital Signs - First Documented 11/24/22 10:18 Temp 36.4 Pulse 84 Resp 16 B/P (MAP) 137/80 (99) (JANE CARNES MD) Vital Signs Capillary Refill : (CHANELLE LAI) Height, Weight, BMI Height: '" Weight: lbs. oz. kg; 35.00 BMI Method: General Appearance: No Apparent Distress, Obese, Other (notable bugs crawling all over pt and bed, dirt located all over pt's clothes and under pt's nails) HEENT: PERRL/EOMI Neck: Full Range of Motion, Non Tender, Other Respiratory: Lungs Clear, Normal Breath Sounds, No Accessory Muscle Use, No Respiratory Distress Cardiovascular: Regular Rate, Rhythm, No Murmur Gastrointestinal: Non Tender, Soft, Other (diastasis recti present with sitting up ) Back: No CVA Tenderness, No Vertebral Tenderness, Other (slight hypertonicity noted in upper thoracic and lower lumbar regions; non tender to palpation ) Extremity: Calf Tenderness (mild B/L upper calf tenderness; tenderness also noted diffusely over LEs) Neurologic/Psychiatric: Alert, Oriented x3, No Motor/Sensory Deficits (5/5 strength b/l UE and LE) Skin: Normal Color, Warm/Dry (CHANELLE LAI) Progress/Results/Core Measures Suspected Sepsis SIRS Temperature: Pulse: 84 Respiratory Rate: 16 Laboratory Tests 11/24/22 12:04: White Blood Count 10.1 Blood Pressure 137 /80 Mean: 99 Laboratory Tests 11/24/22 12:04: Creatinine 1.18, Platelet Count 323, Total Bilirubin 0.3 (CHANELLE LAI) Results/Orders Lab Results Laboratory Tests Test 11/24/22 12:04 Range/Units White Blood Count 10.1 4.3-11.0 10^3/uL Red Blood Count 5.17 4.30-5.52 10^6/uL Hemoglobin 14.4 13.3-17.7 g/dL Hematocrit 45 40-54 % Mean Corpuscular Volume 87 80-99 fL Mean Corpuscular Hemoglobin 28 25-34 pg Mean Corpuscular Hemoglobin Concent 32 32-36 g/dL Red Cell Distribution Width 14.8 H 10.0-14.5 % Platelet Count 323 130-400 10^3/uL Mean Platelet Volume 10.5 9.0-12.2 fL Immature Granulocyte % (Auto) 0 % Neutrophils (%) (Auto) 69 42-75 % Lymphocytes (%) (Auto) 16 12-44 % Monocytes (%) (Auto) 11 0-12 % Eosinophils (%) (Auto) 3 0-10 % Basophils (%) (Auto) 1 0-10 % Neutrophils # (Auto) 7.0 1.8-7.8 10^3/uL Lymphocytes # (Auto) 1.6 1.0-4.0 10^3/uL Monocytes # (Auto) 1.1 H 0.0-1.0 10^3/uL Eosinophils # (Auto) 0.3 0.0-0.3 10^3/uL Basophils # (Auto) 0.1 0.0-0.1 10^3/uL Immature Granulocyte # (Auto) 0.0 0.0-0.1 10^3/uL Sodium Level 141 135-145 MMOL/L Potassium Level 4.3 3.6-5.0 MMOL/L Chloride Level 103 98-107 MMOL/L Carbon Dioxide Level 27 21-32 MMOL/L Anion Gap 11 5-14 MMOL/L Blood Urea Nitrogen 19 H 7-18 MG/DL Creatinine 1.18 0.60-1.30 MG/DL Estimat Glomerular Filtration Rate 68 BUN/Creatinine Ratio 16 Glucose Level 199 H 70-105 MG/DL Calcium Level 10.3 H 8.5-10.1 MG/DL Corrected Calcium 10.1 8.5-10.1 MG/DL Magnesium Level 2.1 1.6-2.4 MG/DL Total Bilirubin 0.3 0.1-1.0 MG/DL Aspartate Amino Transf (AST/SGOT) 15 5-34 U/L Alanine Aminotransferase (ALT/SGPT) 17 0-55 U/L Alkaline Phosphatase 94 40-136 U/L Total Creatine Kinase 179 30-200 U/L Total Protein 8.2 6.4-8.2 GM/DL Albumin 4.3 3.2-4.5 GM/DL TSH [place] Testing 1.63 0.35-4.94 UIU/ML (JANE CARNES MD) My Orders Orders - JANE CARNES MD Cbc With Automated Diff (11/24/22 11:45) Comprehensive Metabolic Panel (11/24/22 11:45) Creatine Kinase (11/24/22 11:45) Magnesium (11/24/22 11:45) Thyroid Analyzer (11/24/22 11:45) Vitamin D 25-Hydroxy (11/24/22 11:45) Iron Tibc %Sat & Ferritin (11/24/22 11:45) (JANE CARNES MD) Vital Signs/I&O 11/24/22 11/24/22 10:18 13:30 Temp 36.4 36.4 Pulse 84 81 Resp 16 18 B/P (MAP) 137/80 (99) 140/81 (JANE CARNES MD) Vital Signs/I&O Capillary Refill : (CHANELLE LAI) Blood Pressure Mean: 99 Progress Note : Time: 12:26 Progress Note Assessment: 1. Generalized Muscle Aches 2. Chronic Back and Neck pain/osteoarthritis 3. Statin-induced myopathy Plan: CBC and CMP with Diff, CK, and Mg to check for electrolyte imbalances that may be underlying cause of muscle aches Pt has h/o of Anemia due to bedbug infestation, check iron and vitamin D levels Consider possible Flu test (CHANELLE LAI) Progress Note : Progress Note I discussed options with the patient including the possibility of repeating lab work and adding new lab work including magnesium, iron studies, and a vitamin D level. Patient wished to proceed. A CK level was obtained to compare with prior. There was no significant change. CBC and CMP were unremarkable. Iron studies and vitamin D level will need to be reviewed and outpatient follow-up as they are send out labs. Patient's symptoms seem to correlate with initiating sleep on the floor. I have advised that he try to make alternative sleeping arrangements as sleeping on the floor is likely a significant contributor to his pain. We also discussed use of gabapentin as pain may be related to neuropathy from diabetes or radiculopathy from spine disease. Patient was advised to address his bedbug infestation with debt counselor services. See discharge instructions for further discussion. (JANE CARNES MD) Departure Impression Primary Impression: Myalgia Additional Impressions: Generalized body aches Bedbug infestation Disposition: 01 HOME, SELF-CARE Condition: Improved Departure-Patient Inst. Decision time for Depature: 13:19 (JANE CARNES MD) Referrals: MOISÉS WRAY APRN (PCP) Primary Care Physician [facility] (Family) Primary Care Physician Patient Instructions: NO INSTRUCTIONS GIVEN Add. Discharge Instructions: Your work-up in the emergency room was unremarkable, and the exact cause of your symptoms is uncertain. There are some labs still pending from your ER visit including a vitamin D level and an iron level. These results should be available in a few days. Please review them with your primary care provider at a follow-up appointment. Please follow-up with your primary care provider soon as possible. It is possible that your cholesterol medicine rosuvastatin may be causing muscle aches. Please discuss the potential of stopping this medication or reducing the dose with your billet cutter on a trial basis. Discussed this with your primary care provider also. Sleeping on the hard floor is also likely contributing to your pain. Finding an alternative sleeping arrangement may be very helpful. For short-term management of your pain, try taking ibuprofen up to 600 mg every 6 hours as needed. If this is insufficient, you may try using gabapentin (Neurontin) as prescribed. Gabapentin may cause drowsiness, so do not drive or operate machinery or make important decisions while on gabapentin. Return to the emergency room if you have worsening symptoms despite following these instructions, especially if you develop weakness of your arms or legs, difficulty controlling bowels or bladder, or numbness in your groin. All discharge instructions reviewed with patient and/or family. Voiced understanding. Scripts Gabapentin (Neurontin) 300 Mg Capsule 300 MG PO BID, #10 CAP Prov: JANE CARNES MD 11/24/22 Medical Student Attestation and Attending Note: I have personally interviewed and examined this patient along with Chanelle campos, MS3. I have reviewed student documentation including history, physical, and assessments. I agree with the documentation except where otherwise noted. Exam: General: Alert, oriented, no acute distress, well developed HEENT: Normocephalic and atraumatic Heart: Regular rate and rhythm without murmur Lungs: Clear to auscultation bilaterally with normal effort Abdomen: Soft, nontender, nondistended, normal bowel sounds Neuropsych: Alert, oriented, no focal deficits Musculoskeletal: Generalized tenderness in multiple areas including the shoulder girdle, lower back, lateral hips, etc. No pain with rotation of the hips. Skin: Warm and dry without rashes (JANE CARNES MD) Copy Copies To 1: [facility]/CHANELLE CUNHA Nov 24, 2022 12:05 JANE CARNES MD Nov 24, 2022 13:23
[2022-11-24 12:14] LABS: BASOPHILS # (AUTO) 0.1 10^3/uL (0.0-0.1); BASOPHILS % (AUTO) 1 % (0-10); EOSINOPHILS # (AUTO) 0.3 10^3/uL (0.0-0.3); EOSINOPHILS % (AUTO) 3 % (0-10); HEMATOCRIT 45 % (40-54); HEMOGLOBIN 14.4 g/dL (13.3-17.7); LYMPHOCYTES # (AUTO) 1.6 10^3/uL (1.0-4.0); LYMPHOCYTES % (AUTO) 16 % (12-44); MEAN CORPUSCULAR HEMOGLOBIN 28 pg (25-34); MEAN CORPUSCULAR HGB CONC 32 g/dL (32-36); MEAN CORPUSCULAR VOLUME 87 fL (80-99); MEAN PLATELET VOLUME 10.5 fL (9.0-12.2); MONOCYTES # (AUTO) 1.1 10^3/uL (0.0-1.0); MONOCYTES % (AUTO) 11 % (0-12); NEUTROPHILS % (AUTO) 69 % (42-75); PLATELET COUNT 323 10^3/uL (130-400); WHITE BLOOD COUNT 10.1 10^3/uL (4.3-11.0)
[2022-11-24 12:40] LABS: ALBUMIN 4.3 GM/DL (3.2-4.5); BILIRUBIN,TOTAL 0.3 MG/DL (0.1-1.0); CALCIUM 10.3 MG/DL (8.5-10.1); CREATININE SERUM 1.18 MG/DL (0.60-1.30); MAGNESIUM 2.1 MG/DL (1.6-2.4); POTASSIUM 4.3 MMOL/L (3.6-5.0); TOTAL PROTEIN 8.2 GM/DL (6.4-8.2)
[2022-11-24 13:00] LABS: TSH (THYROID ANALYZER) 1.63 UIU/ML (0.35-4.94)
[2022-11-24] MEDS ORDERED: GABA300C PO (13:23)
[2022-11-24 13:30] VITALS: BP 140/81
== END 2022-11-24 13:33 | disposition home or self-care (01) ==
LOC: EDUNIT# 10:07 → ER 10:09
DX: M79.10 Myalgia, unspecified site (principal); B88.8 Other specified infestations; M79.605 Pain in left leg; M79.604 Pain in right leg; G47.30 Sleep apnea, unspecified; E66.9 Obesity, unspecified; Z68.35 Body mass index [BMI] 35.0-35.9, adult; Z87.891 Personal history of nicotine dependence; Z99.89 Dependence on other enabling machines and devices
CPT/HCPCS: 36415; 80053; 82306; 82550; 82728; 83540; 83550; 83735; 84443; 85025; 99281